=== PATIENT | female | born 1975 ===

== ENCOUNTER → 2020-05-14 12:34 | Outpatient (BNVA) | payer OTHER, MEDICAID, SELFPAY | PROVIDERS: PCP Internal Medicine; Visit Provider Dietitian, Registered | DX: Z76.89 Persons encountering health services in other specified circumstances (principal) ==

== ENCOUNTER → 2020-05-30 14:32 | Outpatient (BNVA) | payer OTHER, MEDICAID, SELFPAY | PROVIDERS: PCP Internal Medicine; Referring Provider Internal Medicine; Visit Provider Dietitian, Registered | DX: Z76.89 Persons encountering health services in other specified circumstances (principal) ==

== ENCOUNTER 2020-06-05 18:13 | Outpatient (REF) | payer OTHER, MEDICAID, SELFPAY | END 2020-06-05 18:14 | disposition home or self-care (01) | LOC: HO.LAB 18:13 | PROVIDERS: Visit Provider Internal Medicine | DX: Z20.828 Contact with and (suspected) exposure to other viral communicable diseases (principal) | CPT/HCPCS: C9803; U0003 ==

== ENCOUNTER → 2020-06-28 12:03 | Outpatient (BNVA) | payer OTHER, MEDICAID, SELFPAY | PROVIDERS: Visit Provider Dietitian, Registered | DX: Z76.89 Persons encountering health services in other specified circumstances (principal) ==

== ENCOUNTER → 2020-08-09 11:55 | Outpatient (BNVA) | payer OTHER, MEDICAID, SELFPAY | PROVIDERS: Visit Provider Dietitian, Registered ==

== ENCOUNTER 2020-08-29 23:54 | Emergency (ER) | payer OTHER, MEDICAID, SELFPAY ==
[2020-08-30 00:04] VITALS: BP 144/73; PULSE 67; RESP 16; TEMP 36.9; O2SAT 99; BMI 16.7
[2020-08-30 03:34] VITALS: BP 122/87; PULSE 75; RESP 15; O2SAT 98
--- NOTE | 2020-08-30 03:45 | ED.ABDPAIN ---
HPI - Abdominal Pain General Chief Complaint: Abdominal Pain Stated Complaint: left sided pain/abd pain Time Seen by Provider: 08/30/20 01:19 Source: patient Mode of arrival: ambulatory History of Present Illness HPI narrative: This is a 45-year-old female who presents with pelvic/left lower quadrant pain, crampy in nature that has been ongoing for over 1 week and has not been associated with any urinary pain/burning/frequency, fevers, chills, nausea, vomiting, decreased p.o. intake. She does have a positive surgical history for and tubal ligation. She states that she typically has a bowel movement twice a day, however notes that today she has had multiple episodes of soft, formed, brown stool. She also endorses that the pelvic portion of her pain was worked up by her administrative assistant office manager with out acute findings on pelvic exam and testing that was done subsequent to that. Her primary care provider empirically start her on levofloxacin and Flagyl, but she states she has not started taking that because she did not understand why it had been prescribed. Related Data Home Medications Medication Instructions Recorded Confirmed multivitamin 1 tab PO DAILY 07/02/20 07/02/20 Allergies Allergy/AdvReac Type Severity Reaction Status Date / Time apple Allergy Unknown Itching Verified 08/09/20 12:00 mouth and ears house dust mite Allergy Unknown Itching Verified 08/09/20 12:00 peach Allergy Unknown itching Verified 08/09/20 12:00 mouth and ears pepper (genus Capsicum) Allergy Unknown itching Verified 08/09/20 12:00 mouth and ears strawberry Allergy Unknown itching Verified 08/09/20 12:00 mouth and ears tomato Allergy Unknown itching Verified 08/09/20 12:00 mouth and ears avocado AdvReac Unknown gagging, Verified 08/09/20 12:00 her voice changes Review of Systems Review of Systems Pertinent positives and negatives as stated in HPI 10 point review of systems is otherwise negative. Physical Exam Vital Signs: Vital Signs: Last Vital Signs Temp 97.4 F 08/30/20 04:00 Pulse 80 08/30/20 04:00 Resp 15 08/30/20 04:00 BP 117/72 08/30/20 04:00 Pulse Ox 99 08/30/20 04:00 Body Mass Index 16.7 VITAL SIGNS: Reviewed. GENERAL: Well developed, under nourished, in no acute distress. HEAD: Normocephalic/atraumatic, EYES: PERRLA, EOMI EARS: Ext canals without abnormality, TMs non-bulging and non-erythematous NOSE: Nares patent bilateral OROPHARYNX: no oral lesions noted, posterior pharynx clear, moist mucosa NECK: Supple, no adenopathy LUNGS: Normal breath sounds. No adventitious sounds or accessory muscle use. SpO2<99> CARDIOVASCULAR: Regular rate and rhythm without noted murmurs, no JVD or lower extremity edema. ABDOMEN: Soft, minimal tenderness noted in mid abdomen/left lower quadrant without rebound, non-distended with bowel sounds. SKIN: Inspection of the skin reveals no rashes NEUROLOGIC: Alert and oriented x 4. Strength and sensation to light touch were grossly intact x 4. Course Course Course Narrative: This is a 45-year-old female with history and clinical presentation suggestive of IBS, less likely diverticulitis, ovarian torsion, ectopic and low clinical suspicion for appendicitis or renal colic. On review of all of the valerie investigations there is no evidence any acute findings. These results were discussed with patient at bedside she was reassured that further outpatient follow-up is the best recommendation at this time. She was discharged in stable condition. MDM - Abdominal Pain Lab Data Result diagrams: 08/30/20 03:44 08/30/20 03:44 Labs: Lab Results 08/30/20 08/30/20 08/30/20 Range/Units 03:44 03:44 03:44 WBC 8.7 (4.8-10.8) X10*3/uL RBC 5.05 (4.20-5.50) X10*6/uL Hgb 13.3 (12.0-16.0) g/dl Hct 41.0 (37-47) % MCV 81.2 (80-98) fL MCH 26.3 L (27.0-33.0) pg MCHC 32.4 (31.0-35.0) g/dl RDW 12.1 (11.0-16.0) % Plt Count 289 (160-400) X10*3/uL MPV 9.9 (9.4-12.3) fL Immature Gran % (Auto) 0.2 (0.0-0.4) % Neut % (Auto) 68.6 (45-73) % Lymph % (Auto) 24.9 (20-40) % [place] % (Auto) 5.7 (2-11) % Eos % (Auto) 0.3 (0-4) % Baso % (Auto) 0.3 (0-2) % Lymph # (Auto) 2.2 (1.2-4.9) X10*3/uL [place] # (Auto) 0.5 (0.1-1.2) X10*3/uL Eos # (Auto) 0.0 (0.0-0.4) X10*3/uL Baso # (Auto) 0.0 (0.0-0.2) X10*3/uL Abs Immat Gran (auto) 0.02 (0.00-0.03) X10*3/uL Absolute Neuts (auto) 6.0 (2.0-8.3) X10*3/uL Absolute Nucleated RBC 0.000 (0.0-0.012) X10*3/uL Nucleated RBC % (auto) 0.0 (0.0-0.2) /100WBC Sodium 139 (135-145) mmol/L Potassium 3.5 (3.3-5.1) mmol/L Chloride 107 (96-108) mmol/L Carbon Dioxide 25 (22-29) mmol/L Anion Gap 11 L (12-20) BUN 10 (9-16) mg/dL Creatinine 0.70 (0.5-1.4) mg/dL Estim Creat Clear Calc 69.9 Estimated GFR > 60 Random Glucose 107 (60-115) mg/dL Calcium 9.0 (8.4-10.2) mg/dL Total Bilirubin 0.5 (0.0-1.0) mg/dL AST 14 (5-31) U/L ALT 8 (0-31) U/L Alkaline Phosphatase 59 (39-117) U/L Total Protein 7.0 (6.5-8.0) g/dL Albumin 4.5 (3.5-5.0) g/dL Lipase 29 (8-78) U/L Urine Color YELLOW Urine Appearance CLEAR Urine pH 7.0 (5.0-8.0) Ur Specific [place] 1.025 (1.005-1.025) Urine Protein NEG (NEG-TRACE) MG/DL Urine Glucose (UA) NEG (NEG) MG/DL Urine Ketones 15 (NEG) MG/DL Urine Blood TRACE (NEG) Urine Nitrite NEG (NEG) Ur Leukocyte Esterase NEG (NEG) Urine RBC 1-4 (0) /HPF Urine WBC 1-4 (0-4) /HPF Ur Squamous Epith Cells 1+ /LPF Amorphous Sediment 2+ /LPF Urine Bacteria 1+ /LPF Urine Test (NEGATIVE) 08/30/20 Range/Units 03:44 WBC (4.8-10.8) X10*3/uL RBC (4.20-5.50) X10*6/uL Hgb (12.0-16.0) g/dl Hct (37-47) % MCV (80-98) fL MCH (27.0-33.0) pg MCHC (31.0-35.0) g/dl RDW (11.0-16.0) % Plt Count (160-400) X10*3/uL MPV (9.4-12.3) fL Immature Gran % (Auto) (0.0-0.4) % Neut % (Auto) (45-73) % Lymph % (Auto) (20-40) % [place] % (Auto) (2-11) % Eos % (Auto) (0-4) % Baso % (Auto) (0-2) % Lymph # (Auto) (1.2-4.9) X10*3/uL [place] # (Auto) (0.1-1.2) X10*3/uL Eos # (Auto) (0.0-0.4) X10*3/uL Baso # (Auto) (0.0-0.2) X10*3/uL Abs Immat Gran (auto) (0.00-0.03) X10*3/uL Absolute Neuts (auto) (2.0-8.3) X10*3/uL Absolute Nucleated RBC (0.0-0.012) X10*3/uL Nucleated RBC % (auto) (0.0-0.2) /100WBC Sodium (135-145) mmol/L Potassium (3.3-5.1) mmol/L Chloride (96-108) mmol/L Carbon Dioxide (22-29) mmol/L Anion Gap (12-20) BUN (9-16) mg/dL Creatinine (0.5-1.4) mg/dL Estim Creat Clear Calc Estimated GFR Random Glucose (60-115) mg/dL Calcium (8.4-10.2) mg/dL Total Bilirubin (0.0-1.0) mg/dL AST (5-31) U/L ALT (0-31) U/L Alkaline Phosphatase (39-117) U/L Total Protein (6.5-8.0) g/dL Albumin (3.5-5.0) g/dL Lipase (8-78) U/L Urine Color Urine Appearance Urine pH (5.0-8.0) Ur Specific [place] (1.005-1.025) Urine Protein (NEG-TRACE) MG/DL Urine Glucose (UA) (NEG) MG/DL Urine Ketones (NEG) MG/DL Urine Blood (NEG) Urine Nitrite (NEG) Ur Leukocyte Esterase (NEG) Urine RBC (0) /HPF Urine WBC (0-4) /HPF Ur Squamous Epith Cells /LPF Amorphous Sediment /LPF Urine Bacteria /LPF Urine Test NEGATIVE (NEGATIVE) Discharge Plan Discharge Clinical Impression: Abdominal discomfort Patient Disposition: Home, Self-Care Instructions: Abdominal Pain (ED), Gas and Bloating (ED) Additional Instructions: Please follow-up with your primary care provider in the next 2-3 days for further outpatient re-evaluation and management. Do not hesitate to return to this emergency department should you experience any acute worsening of your symptoms. Prescriptions: No Action multivitamin Tablet 1 tab PO DAILY RF: 0 Referrals: Laurence Olmedo MD [Primary Care Provider] - 2 days (Re-evaluation and outpatient management after seen in the emergency department for abdominal discomfort with normal labs. No CT scan was ordered based on normal lab work/urinalysis.) [facility] Past Medical History Source: nursing notes reviewed Medical History Anxiety Social History Social History Smoking Status: Never smoker Use of substances other than those prescribed or required for medical reasons: No Advance Directives: No Advance Directives Information Provided: No
[2020-08-30 03:52] LABS: MANUAL DIFF FLAG NO
[2020-08-30 03:55] LABS: Basophils Percent Auto 0.3 % (0-2); Eosinophils Percent Auto 0.3 % (0-4); Hemoglobin 13.3 g/dl (12.0-16.0); Imm Gran Abs Auto 0.02 X10*3/uL (0.00-0.03); Imm Gran Pct Auto 0.2 % (0.0-0.4); Lymphocytes Absolute Auto 2.2 X10*3/uL (1.2-4.9); Lymphocytes Percent Auto 24.9 % (20-40); Mean Corpuscular HGB Conc 32.4 g/dl (31.0-35.0); Mean Corpuscular Hemoglobin 26.3 pg (27.0-33.0); Mean Corpuscular Volume 81.2 fL (80-98); Mean Platelet Volume 9.9 fL (9.4-12.3); Monocytes Absolute Auto 0.5 X10*3/uL (0.1-1.2); Monocytes Percent Auto 5.7 % (2-11); Neutrophils Percent Auto 68.6 % (45-73); Platelet Count 289 X10*3/uL (160-400); Red Blood Count 5.05 X10*6/uL (4.20-5.50); Red Cell Distribution Width 12.1 % (11.0-16.0); White Blood Count 8.7 X10*3/uL (4.8-10.8)
[2020-08-30 03:57] LABS: Glucose Urine UA NEG (NEG); Leukocyte Esterase Urine NEG (NEG); Nitrite Urine NEG (NEG); Specific Gravity - Urine 1.025 (1.005-1.025); Urine Blood TRACE (NEG); Urine Ketones 15 MG/DL (NEG); Urine Protein NEG (NEG-TRACE)
[2020-08-30 04:00] VITALS: BP 117/72; PULSE 80; RESP 15; TEMP 36.3; O2SAT 99
[2020-08-30 04:00] LABS: UPreg QC Valid YES; Urine Pregnancy NEGATIVE (NEGATIVE)
[2020-08-30 04:01] LABS: Appearance Urine CLEAR; Color Urine YELLOW
[2020-08-30 04:08] LABS: Bacteria Urine 1+ /LPF; Squamous Epithelial Cell Urine 1+ /LPF
[2020-08-30 04:09] LABS: Amorphous Sediment Urine 2+ /LPF
[2020-08-30 04:15] LABS: Alanine Aminotransferase 8 U/L (0-31); Albumin Level 4.5 g/dL (3.5-5.0); Alkaline Phosphatase 59 U/L (39-117); Anion Gap 11 (12-20); Aspartate Amino Transferase 14 U/L (5-31); Bilirubin Total 0.5 mg/dL (0.0-1.0); Blood Urea Nitrogen 10 mg/dL (9-16); Carbon Dioxide 25 mmol/L (22-29); Chloride 107 mmol/L (96-108); Creatinine Clr Calc Pharmacy 69.9; Estimated Glomerular Filt Rate > 60; Glucose Random 107 mg/dL (60-115); Lipase 29 U/L (8-78); Potassium 3.5 mmol/L (3.3-5.1); Sodium 139 mmol/L (135-145)
== END 2020-08-30 05:50 | disposition home or self-care (01) ==
PROVIDERS: Emergency Provider Student in an Organized Health Care Education/Training Program; PCP Internal Medicine
DX: R10.32 Left lower quadrant pain (principal); R14.0 Abdominal distension (gaseous); Z79.899 Other long term (current) drug therapy
CPT/HCPCS: 36415; 80053; 81001; 81003; 81025; 83690; 85025; 99283; 99284

== ENCOUNTER 2020-09-07 21:04 | Emergency (ER) | payer OTHER, MEDICAID, SELFPAY ==
--- NOTE | ~2020-09-07 | CT_ITS ---
EXAMINATION: CT ABDOMEN AND PELVIS WITH CONTRAST CLINICAL INFORMATION: LLQ pain COMPARISON: None TECHNIQUE: Multidetector volumetric images were obtained from the superior aspect of the liver through the pubic symphysis following administration 85 mL of Omnipaque 350 intravenous contrast. Sagittal and coronal reformatted images were obtained on the technologist's workstation. Oral contrast: No This CT examination was performed using dose optimization techniques as appropriate, variously including the following: *Automated exposure control *Adjustment of mA and/or kV according to patient size (this includes techniques or standardized protocols for targeted exams where dose is matched to indication/reason for exam; i.e. extremities or head) *Use of iterative reconstruction technique DLP: 288 mGy-cm FINDINGS: LUNG BASES: The visualized lung bases are unremarkable. LIVER, GALLBLADDER, AND BILIARY TREE: The liver is normal in size, shape, and attenuation. No focal hepatic lesion or biliary ductal dilatation is present. The gallbladder is unremarkable with no evidence of radiopaque gallstones, gallbladder wall thickening, or obvious pericholecystic inflammatory changes. PANCREAS: Unremarkable. SPLEEN: Unremarkable. ADRENAL GLANDS: Unremarkable. KIDNEYS AND URETERS: There is mild right renal ptosis. The kidneys are normal in size, shape, and attenuation. No hydronephrosis, hydroureter, or calculi seen. No perinephric stranding. Contrast material is present within the renal collecting systems proximally. BLADDER: Unremarkable. GASTROINTESTINAL TRACT: Stomach, small bowel, and colon are normal in caliber. No bowel wall thickening or surrounding inflammatory changes. Appendix is normal. No intraperitoneal free fluid or free air. ABDOMINAL WALL: No significant hernia is appreciated. LYMPH NODES: Normal. VASCULAR: Unremarkable. PELVIC VISCERA: The uterus and adnexa are unremarkable. OSSEOUS STRUCTURES: Unremarkable. CT/CT abdomen pelvis w con IMPRESSION: No acute intra-abdominal or intrapelvic abnormalities.
[2020-09-07 23:57] VITALS: BP 131/100; PULSE 87; RESP 20; TEMP 36.6; O2SAT 100; BMI 16.6
--- NOTE | 2020-09-08 00:32 | ED_ITS ---
HPI - Abdominal Pain General Chief Complaint: Abdominal Pain Stated Complaint: Abdominal pain Time Seen by Provider: 09/08/20 00:20 Source: patient Mode of arrival: ambulatory Limitations: no limitations History of Present Illness HPI narrative: Patient comes emergency room complaining of left lower quadrant pain. Patient has been evaluated by her special education associate, patient states she had an ultrasound done on August 24, was told that was unremarkable. Then patient went to see her primary care physician, she was prescribed Flagyl and levofloxacin for possible diverticulitis, patient only took 2 doses, patient states it made the pain worse and therefore stopped taking it. Patient was evaluated on August 30 here as well for the same issue. Patient denies vomiting, no diarrhea, no constipation MD elicited complaint: abdominal pain Related Data Home Medications Medication Instructions Recorded Confirmed multivitamin 1 tab PO DAILY 07/02/20 07/02/20 Allergies Allergy/AdvReac Type Severity Reaction Status Date / Time apple Allergy Unknown Itching Verified 09/07/20 23:57 mouth and ears house dust mite Allergy Unknown Itching Verified 09/07/20 23:57 peach Allergy Unknown itching Verified 09/07/20 23:57 mouth and ears pepper (genus Capsicum) Allergy Unknown itching Verified 09/07/20 23:57 mouth and ears strawberry Allergy Unknown itching Verified 09/07/20 23:57 mouth and ears tomato Allergy Unknown itching Verified 09/07/20 23:57 mouth and ears avocado AdvReac Unknown gagging, Verified 09/07/20 23:57 her voice changes Review of Systems Review of Systems Constitutional : No Weight loss, No Fever, No Chills, No Night Sweats, No Fatigue, No Malaise ENT/Mouth : No Hearing loss, No Ear Pain, No Nasal Congestion, No Sinus Pain, No Hoarseness, No sore throat, No Rhinorrhea, No Swallowing Difficulty Eyes: No Eye Pain, No Swelling, No Redness, No Foreign Body, No Discharge, No Vision Changes Cardiovascular : No Chest Pain, No SOB, No Dyspnea on Exertion, No Orthopnea, No Edema, No Palpitations Respiratory : No Cough, No Sputum, No Wheezing, No Smoke Exposure, No Dyspnea Gastrointestinal : No Nausea, No Vomiting, No Diarrhea, No Constipation, complaining of left lower quadrant pain, No Hematochezia, No Melena Genitourinary : no irregular bleeding, No Dysuria, No Urinary Frequency, No Hematuria, No Urinary Incontinence, No Urgency, No Flank Pain, No Urinary Flow Changes, No Hesitancy Musculoskeletal : No joint pain, No Myalgias, No Joint Swelling Skin : No Skin Lesions, No rash Neuro : No Weakness, No Numbness, No Paresthesias, No Loss of Consciousness, No Dizziness, No Headache Psych : No Anxiety/Panic, No Depression, No SI/HI/AH/VH, No Social Issues, Heme/Lymph: No Bruising, No Bleeding,No Lymphadenopathy Endocrine : No Polyuria, No Polydipsia, No Temperature Intolerance Physical Exam Vital Signs: Vital Signs: Last Vital Signs Temp 97.9 F 09/07/20 23:57 Pulse 79 09/08/20 02:25 Resp 16 09/08/20 02:25 BP 131/100 H 09/08/20 02:25 Pulse Ox 99 09/08/20 02:25 Body Mass Index 16.6 Appearance: Alert. Oriented X3. No acute distress. Eyes: Pupils equal, round and reactive to light. ENT: Pharynx normal. Neck: Normal inspection. Neck supple. No lymph nodes noted. No crepitus CVS: Normal heart rate and rhythm. Pulses normal. Normal S1 and S2 Respiratory: No respiratory distress. Breath sounds normal. No Wheezing. No rales Abdomen: Soft , mild discomfort to palpation over the right lower quadrant and suprapubic area, No rigidity. No distention. good BS x4 Skin: Skin warm and dry. Normal skin color. Normal skin turgor. Extremities: No lower extremity edema. No lower extremity edema. No Lacerations. No Rash Neuro: Oriented X 3. No motor deficit. No sensory deficit. Moving all extermities. No slurred speech. Course Course Course Narrative: I discussed labs and imaging with the patient, no acute findings. Patient instructed to follow-up with her primary care physician. Patient has no vomiting diarrhea, abdomen soft MDM - Abdominal Pain Lab Data Result diagrams: 09/08/20 01:10 09/08/20 01:10 Labs: Lab Results 09/08/20 09/08/20 09/08/20 Range/Units 01:10 01:10 01:10 WBC 6.8 (4.8-10.8) X10*3/uL RBC 4.90 (4.20-5.50) X10*6/uL Hgb 13.1 (12.0-16.0) g/dl Hct 40.8 (37-47) % MCV 83.3 (80-98) fL MCH 26.7 L (27.0-33.0) pg MCHC 32.1 (31.0-35.0) g/dl RDW 12.3 (11.0-16.0) % Plt Count 274 (160-400) X10*3/uL MPV 9.5 (9.4-12.3) fL Immature Gran % (Auto) 0.3 (0.0-0.4) % Neut % (Auto) 55.6 (45-73) % Lymph % (Auto) 34.9 (20-40) % [place] % (Auto) 7.7 (2-11) % Eos % (Auto) 1.2 (0-4) % Baso % (Auto) 0.3 (0-2) % Lymph # (Auto) 2.4 (1.2-4.9) X10*3/uL [place] # (Auto) 0.5 (0.1-1.2) X10*3/uL Eos # (Auto) 0.1 (0.0-0.4) X10*3/uL Baso # (Auto) 0.0 (0.0-0.2) X10*3/uL Abs Immat Gran (auto) 0.02 (0.00-0.03) X10*3/uL Absolute Neuts (auto) 3.8 (2.0-8.3) X10*3/uL Absolute Nucleated RBC 0.000 (0.0-0.012) X10*3/uL Nucleated RBC % (auto) 0.0 (0.0-0.2) /100WBC Sodium 141 (135-145) mmol/L Potassium 3.7 (3.3-5.1) mmol/L Chloride 106 (96-108) mmol/L Carbon Dioxide 27 (22-29) mmol/L Anion Gap 12 (12-20) BUN 16 D (9-16) mg/dL Creatinine 0.69 (0.5-1.4) mg/dL Estim Creat Clear Calc 70.7 Estimated GFR > 60 Random Glucose 95 (60-115) mg/dL Calcium 9.2 (8.4-10.2) mg/dL Total Bilirubin 0.9 (0.0-1.0) mg/dL Direct Bilirubin 0.3 (0.0-0.5) mg/dL AST 17 (5-31) U/L ALT 8 (0-31) U/L Alkaline Phosphatase 64 (39-117) U/L Total Protein 7.1 (6.5-8.0) g/dL Albumin 4.5 (3.5-5.0) g/dL Lipase 25 (8-78) U/L Urine Color YELLOW Urine Appearance CLEAR Urine pH 6.0 (5.0-8.0) Ur Specific [place] >= 1.030 H (1.005-1.025) Urine Protein NEG (NEG-TRACE) MG/DL Urine Glucose (UA) NEG (NEG) MG/DL Urine Ketones 5 (NEG) MG/DL Urine Blood 1+ H (NEG) Urine Nitrite NEG (NEG) Ur Leukocyte Esterase NEG (NEG) Urine RBC 0-2 (0) /HPF Urine WBC 0 (0-4) /HPF Ur Squamous Epith Cells 1+ /LPF Calcium Oxalate Crystal TRACE /LPF Urine Bacteria NONE /LPF Urine Mucus 3+ /LPF Urine Test (NEGATIVE) 09/08/20 Range/Units 01:10 WBC (4.8-10.8) X10*3/uL RBC (4.20-5.50) X10*6/uL Hgb (12.0-16.0) g/dl Hct (37-47) % MCV (80-98) fL MCH (27.0-33.0) pg MCHC (31.0-35.0) g/dl RDW (11.0-16.0) % Plt Count (160-400) X10*3/uL MPV (9.4-12.3) fL Immature Gran % (Auto) (0.0-0.4) % Neut % (Auto) (45-73) % Lymph % (Auto) (20-40) % [place] % (Auto) (2-11) % Eos % (Auto) (0-4) % Baso % (Auto) (0-2) % Lymph # (Auto) (1.2-4.9) X10*3/uL [place] # (Auto) (0.1-1.2) X10*3/uL Eos # (Auto) (0.0-0.4) X10*3/uL Baso # (Auto) (0.0-0.2) X10*3/uL Abs Immat Gran (auto) (0.00-0.03) X10*3/uL Absolute Neuts (auto) (2.0-8.3) X10*3/uL Absolute Nucleated RBC (0.0-0.012) X10*3/uL Nucleated RBC % (auto) (0.0-0.2) /100WBC Sodium (135-145) mmol/L Potassium (3.3-5.1) mmol/L Chloride (96-108) mmol/L Carbon Dioxide (22-29) mmol/L Anion Gap (12-20) BUN (9-16) mg/dL Creatinine (0.5-1.4) mg/dL Estim Creat Clear Calc Estimated GFR Random Glucose (60-115) mg/dL Calcium (8.4-10.2) mg/dL Total Bilirubin (0.0-1.0) mg/dL Direct Bilirubin (0.0-0.5) mg/dL AST (5-31) U/L ALT (0-31) U/L Alkaline Phosphatase (39-117) U/L Total Protein (6.5-8.0) g/dL Albumin (3.5-5.0) g/dL Lipase (8-78) U/L Urine Color Urine Appearance Urine pH (5.0-8.0) Ur Specific [place] (1.005-1.025) Urine Protein (NEG-TRACE) MG/DL Urine Glucose (UA) (NEG) MG/DL Urine Ketones (NEG) MG/DL Urine Blood (NEG) Urine Nitrite (NEG) Ur Leukocyte Esterase (NEG) Urine RBC (0) /HPF Urine WBC (0-4) /HPF Ur Squamous Epith Cells /LPF Calcium Oxalate Crystal /LPF Urine Bacteria /LPF Urine Mucus /LPF Urine Test NEGATIVE (NEGATIVE) Imaging Data CT scan - abdomen: Radiologist's impression: FINDINGS: LUNG BASES: The visualized lung bases are unremarkable. LIVER, GALLBLADDER, AND BILIARY TREE: The liver is normal in size, shape, and attenuation. No focal hepatic lesion or biliary ductal dilatation is present. The gallbladder is unremarkable with no evidence of radiopaque gallstones, gallbladder wall thickening, or obvious pericholecystic inflammatory changes. PANCREAS: Unremarkable. SPLEEN: Unremarkable. ADRENAL GLANDS: Unremarkable. KIDNEYS AND URETERS: There is mild right renal ptosis. The kidneys are normal in size, shape, and attenuation. No hydronephrosis, hydroureter, or calculi seen. No perinephric stranding. Contrast material is present within the renal collecting systems proximally. BLADDER: Unremarkable. GASTROINTESTINAL TRACT: Stomach, small bowel, and colon are normal in caliber. No bowel wall thickening or surrounding inflammatory changes. Appendix is normal. No intraperitoneal free fluid or free air. ABDOMINAL WALL: No significant hernia is appreciated. LYMPH NODES: Normal. VASCULAR: Unremarkable. PELVIC VISCERA: The uterus and adnexa are unremarkable. OSSEOUS STRUCTURES: Unremarkable. CT/CT abdomen pelvis w con IMPRESSION: No acute intra-abdominal or intrapelvic abnormalities. Discharge Plan Discharge Clinical Impression: Abdominal pain Qualifiers: Abdominal location: left lower quadrant Qualified Code(s): R10.32 - Left lower quadrant pain Patient Disposition: Home, Self-Care Instructions: Abdominal Pain (ED) Additional Instructions: Please follow-up with your primary care physician tomorrow. If you have any worsening or new symptoms, please return to the emergency room or call 911 Prescriptions: No Action multivitamin Tablet 1 tab PO DAILY RF: 0 Referrals: Everton Brasher [Physician] - 2 days [facility] Past Medical History Medical History Anxiety Social History Social History Smoking Status: Never smoker Advance Directives: No Advance Directives Information Provided: No
[2020-09-08 01:16] LABS: Basophils Percent Auto 0.3 % (0-2); Eosinophils Absolute Auto 0.1 X10*3/uL (0.0-0.4); Eosinophils Percent Auto 1.2 % (0-4); Hematocrit 40.8 % (37-47); Hemoglobin 13.1 g/dl (12.0-16.0); Imm Gran Abs Auto 0.02 X10*3/uL (0.00-0.03); Imm Gran Pct Auto 0.3 % (0.0-0.4); Lymphocytes Absolute Auto 2.4 X10*3/uL (1.2-4.9); Lymphocytes Percent Auto 34.9 % (20-40); MANUAL DIFF FLAG NO; Mean Corpuscular HGB Conc 32.1 g/dl (31.0-35.0); Mean Corpuscular Hemoglobin 26.7 pg (27.0-33.0); Mean Corpuscular Volume 83.3 fL (80-98); Mean Platelet Volume 9.5 fL (9.4-12.3); Monocytes Absolute Auto 0.5 X10*3/uL (0.1-1.2); Monocytes Percent Auto 7.7 % (2-11); Neutrophils Absolute Auto 3.8 X10*3/uL (2.0-8.3); Neutrophils Percent Auto 55.6 % (45-73); Platelet Count 274 X10*3/uL (160-400); Red Cell Distribution Width 12.3 % (11.0-16.0); White Blood Count 6.8 X10*3/uL (4.8-10.8)
[2020-09-08 01:18] LABS: Appearance Urine CLEAR; Color Urine YELLOW; Glucose Urine UA NEG (NEG); Leukocyte Esterase Urine NEG (NEG); Nitrite Urine NEG (NEG); Specific Gravity - Urine >= 1.030 (1.005-1.025); Urine Blood 1+ (NEG); Urine Ketones 5 MG/DL (NEG); Urine Protein NEG (NEG-TRACE)
[2020-09-08 01:19] LABS: UPreg QC Valid YES; Urine Pregnancy NEGATIVE (NEGATIVE)
[2020-09-08 01:23] LABS: Calcium Oxalate Crystals Urine TRACE /LPF; Mucus Urine 3+ /LPF; RBC Urine 0-2 /HPF (0); Squamous Epithelial Cell Urine 1+ /LPF; WBC Urine 0 /HPF (0-4)
[2020-09-08 01:36] LABS: Alanine Aminotransferase 8 U/L (0-31); Albumin Level 4.5 g/dL (3.5-5.0); Alkaline Phosphatase 64 U/L (39-117); Anion Gap 12 (12-20); Aspartate Amino Transferase 17 U/L (5-31); Bilirubin Direct 0.3 mg/dL (0.0-0.5); Bilirubin Total 0.9 mg/dL (0.0-1.0); Blood Urea Nitrogen 16 mg/dL (9-16); Calcium 9.2 mg/dL (8.4-10.2); Carbon Dioxide 27 mmol/L (22-29); Chloride 106 mmol/L (96-108); Creatinine Clr Calc Pharmacy 70.7; Estimated Glomerular Filt Rate > 60; Glucose Random 95 mg/dL (60-115); Lipase 25 U/L (8-78); Potassium 3.7 mmol/L (3.3-5.1); Sodium 141 mmol/L (135-145); Total Protein 7.1 g/dL (6.5-8.0)
[2020-09-08 02:25] VITALS: BP 131/100; PULSE 79; RESP 16; O2SAT 99
[2020-09-08 04:20] VITALS: BP 128/73; PULSE 80; RESP 18; O2SAT 98
== END 2020-09-08 04:22 | disposition home or self-care (01) ==
PROVIDERS: Emergency Provider Emergency Medicine; PCP Internal Medicine
DX: R10.32 Left lower quadrant pain (principal)
CPT/HCPCS: 36415; 74177; 80048; 80076; 81001; 81025; 83690; 85025; 99284; Q9967

== ENCOUNTER → 2020-10-10 12:56 | Outpatient (BNVA) | payer OTHER, MEDICAID, SELFPAY | PROVIDERS: PCP Internal Medicine; Visit Provider Internal Medicine Gastroenterology ==

== ENCOUNTER → 2020-10-15 13:08 | Outpatient (BNVA) | payer OTHER, MEDICAID, SELFPAY | PROVIDERS: PCP Internal Medicine; Visit Provider Dietitian, Registered | DX: R63.6 Underweight (principal) | CPT/HCPCS: 97803 ==

== ENCOUNTER → 2020-11-21 12:50 | Outpatient (BNVA) | payer OTHER, MEDICAID, SELFPAY | PROVIDERS: PCP Internal Medicine; Visit Provider Dietitian, Registered | DX: R63.6 Underweight (principal) | CPT/HCPCS: 97803 ==

== ENCOUNTER → 2021-02-06 12:40 | Outpatient (BNVA) | payer OTHER, MEDICAID, SELFPAY | PROVIDERS: PCP Internal Medicine; Visit Provider Dietitian, Registered | DX: R63.6 Underweight (principal) | CPT/HCPCS: 97803 ==

== ENCOUNTER 2021-03-02 10:20 | Outpatient (REF) | payer OTHER, MEDICAID, SELFPAY ==
--- NOTE | ~2021-03-02 | MM_ITS ---
EXAMINATION: MM SCREENING DIGITAL BREAST TOMOSYNTHESIS, BILATERAL CLINICAL INFORMATION: Screening. Asymptomatic. The lifetime risk of breast cancer based on the Tyrer-Cuzick Model is 7%. COMPARISON: Mammography: 02/14/2020, 02/08/2019 TECHNIQUE: Digital breast tomosynthesis is performed in both the craniocaudal and mediolateral oblique views along with computer-aided detection (CAD). Synthesized 2D images are generated from the tomosynthesis. FINDINGS: The breasts are heterogeneously dense, which may obscure small masses (ACR BI-RADS breast composition Category c). There are no significant masses, abnormal calcifications, or other abnormalities. Parenchymal pattern borders on extremely dense. The axilla and skin contours are unremarkable. No significant changes. MM/MM tomosynthesis screening BI IMPRESSION: No mammographic evidence of malignancy. ASSESSMENT: BI-RADS 1: Negative RECOMMENDATION: Routine annual mammography screening. This patient's information was entered into a reminder system with a target due date for their next mammogram.
== END 2021-03-02 10:21 | disposition home or self-care (01) ==
LOC: HO.MAMMO 10:20
PROVIDERS: Visit Provider Internal Medicine
DX: Z12.31 Encounter for screening mammogram for malignant neoplasm of breast (principal)
CPT/HCPCS: 77063; 77067

== ENCOUNTER → 2021-03-14 13:08 | Outpatient (BNVA) | payer OTHER, MEDICAID, SELFPAY | PROVIDERS: PCP Internal Medicine; Visit Provider Dietitian, Registered | DX: R63.6 Underweight (principal); Z68.1 Body mass index [BMI] 19.9 or less, adult | CPT/HCPCS: 97803 ==

== ENCOUNTER 2021-04-29 16:03 | Emergency (ER) | payer OTHER, MEDICAID, SELFPAY ==
--- NOTE | 2021-04-29 | ECG_ITS ---
Test Reason : chest pain Blood Pressure : / mmHG Vent. Rate : 083 BPM Atrial Rate : 083 BPM P-R Int : 134 ms QRS Dur : 074 ms QT Int : 354 ms P-R-T Axes : 045 096 -44 degrees QTc Int : 415 ms Normal sinus rhythm Rightward axis T wave abnormality, consider inferior ischemia Abnormal ECG When compared with ECG of 29-JUL-2019 22:41, T wave inversion more evident in Inferior leads Referred By: Generic ED Physician Electronically Signed By:CAITLIN GARZA MD
[2021-04-29 16:11] VITALS: BP 121/94; PULSE 90; RESP 18; TEMP 36.7; O2SAT 100; BMI 15.9
--- NOTE | 2021-04-29 16:52 | ED_ITS ---
HPI - Chest Pain General Chief Complaint: Chest Pain Stated Complaint: chest pain Time Seen by Provider: 04/29/21 16:47 Source: patient Mode of arrival: ambulatory Limitations: no limitations History of Present Illness HPI narrative: 45 years old with history of anxiety panic attack no known coronary artery disease no history of diabetes or hypertension noticed abnormal feeling the mid chest around 08:00 in the morning lasted for few hours again prior to arrival she had a similar feeling no diaphoresis no nausea no vomiting no shortness of breath patient has similar episode last year with workup negative never had a stress test. Two weeks ago patient saw the primary care doctor plan to see a dimmer board operator next week Related Data Home Medications Medication Instructions Recorded Confirmed multivitamin 1 tab PO DAILY 07/02/20 10/12/20 Allergies Allergy/AdvReac Type Severity Reaction Status Date / Time apple Allergy Unknown Itching Verified 04/29/21 16:18 mouth and ears house dust mite Allergy Unknown Itching Verified 04/29/21 16:18 peach Allergy Unknown itching Verified 04/29/21 16:18 mouth and ears pepper (genus Capsicum) Allergy Unknown itching Verified 04/29/21 16:18 mouth and ears strawberry Allergy Unknown itching Verified 04/29/21 16:18 mouth and ears tomato Allergy Unknown itching Verified 04/29/21 16:18 mouth and ears avocado AdvReac Unknown gagging, Verified 04/29/21 16:18 her voice changes Review of Systems Review of Systems: Yes all other systems are reviewed and are negative PMFSH Past Medical History Medical History Abdominal pain Anxiety Surgical History Hx of section Hx of tonsillectomy Hx of tubal ligation Family History Family History Father Hx of prostatic malignancy Hx of diabetes mellitus Family hx of hypertension Mother No problems noted. Sister No problems noted. Brother No problems noted. 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 Oriented X3. No acute distress. ENT: Pharynx normal. Oral Mucosa moist Neck: Normal inspection. Neck supple. CVS: Normal heart rate and rhythm. Pulses normal. Respiratory: No respiratory distress. Equal air entry bilateral, no wheezing/rales/rhonchi Abdomen: Soft and nontender. Bowel sounds are present, no mass palpable, no CVA tenderness Skin: Skin warm and dry. Normal skin color. Normal skin turgor. Extremities: No lower extremity edema. No calf tenderness Neuro: Oriented X 3. MDM - Chest Pain MDM Narrative Medical decision making narrative: Patient has atypical chest pain for more than 6 hour normal troponin EKG without any acute ischemic changes plan to see dimmer board operator outpatient discharge patient Lab Data Attestation: I reviewed the patient's lab results. Result diagrams: 04/29/21 18:04 04/29/21 18:04 Labs: Lab Results 04/29/21 04/29/21 04/29/21 Range/Units 18:04 18:04 18:04 WBC 8.6 (4.8-10.8) X10*3/uL RBC 5.13 (4.20-5.50) X10*6/uL Hgb 13.7 (12.0-16.0) g/dl Hct 42.3 (37.0-47.0) % MCV 82.5 (80.0-98.0) fL MCH 26.7 L (27.0-33.0) pg MCHC 32.4 (31.0-35.0) g/dl RDW 12.4 (11.0-16.0) % Plt Count 288 (160-400) X10*3/uL MPV 9.6 (9.4-12.3) fL Immature Gran % (Auto) 0.3 (0.0-0.4) % Neut % (Auto) 70.5 (45-73) % Lymph % (Auto) 22.7 (20-40) % [place] % (Auto) 6.1 (2-11) % Eos % (Auto) 0.2 (0-4) % Baso % (Auto) 0.2 (0-2) % Lymph # (Auto) 2.0 (1.2-4.9) X10*3/uL [place] # (Auto) 0.5 (0.1-1.2) X10*3/uL Eos # (Auto) 0.0 (0.0-0.4) X10*3/uL Baso # (Auto) 0.0 (0.0-0.2) X10*3/uL Abs Immat Gran (auto) 0.03 (0.00-0.03) X10*3/uL Absolute Neuts (auto) 6.0 (2.0-8.3) x10*3/uL Absolute Nucleated RBC 0.000 (0.0-0.012) X10*3/uL Nucleated RBC % (auto) 0.0 (0.0-0.2) /100WBC Sodium 139 (135-145) mmol/L Potassium 3.9 (3.3-5.1) mmol/L Chloride 108 (96-108) mmol/L Carbon Dioxide 23 (22-29) mmol/L Anion Gap 12 (12-20) BUN 9 (9-16) mg/dL Creatinine 0.66 (0.5-1.4) mg/dL Estim Creat Clear Calc 70.8 Estimated GFR > 60 Random Glucose 88 (60-115) mg/dL Calcium 9.1 (8.4-10.2) mg/dL Troponin I High Sens < 3.5 (<3.5-17.0) ng/L ECG Data ECG #1: Attestation: I personally reviewed and interpreted this ECG as follows: Interpretation: Normal sinus rhythm right axis deviation nonspecific T inversion in 2, [address] elevation no acute skin Scores Heart Score History: -0- slightly suspicious ECG: -0- normal Age: -0- < or = 45 Risk factory: -0- no risk factors known Troponin: -0- < or = normal limit Score: 0 Risk: 1.7% Discharge Plan Discharge Clinical Impression: Chest pain Qualifiers: Chest pain type: precordial pain Qualified Code(s): R07.2 - Precordial pain Patient Disposition: Home, Self-Care Instructions: Chest Pain (ED) Additional Instructions: Take baby aspirin daily Follow-up with your PCP and dimmer board operator as scheduled Prescriptions: No Action multivitamin Tablet 1 tab PO DAILY RF: 0
[2021-04-29 18:09] VITALS: PULSE 80
[2021-04-29 18:09] LABS: MANUAL DIFF FLAG NO
[2021-04-29 18:11] LABS: Basophils Percent Auto 0.2 % (0-2); Eosinophils Percent Auto 0.2 % (0-4); Hematocrit 42.3 % (37.0-47.0); Hemoglobin 13.7 g/dl (12.0-16.0); Imm Gran Abs Auto 0.03 X10*3/uL (0.00-0.03); Imm Gran Pct Auto 0.3 % (0.0-0.4); Lymphocytes Percent Auto 22.7 % (20-40); Mean Corpuscular HGB Conc 32.4 g/dl (31.0-35.0); Mean Corpuscular Hemoglobin 26.7 pg (27.0-33.0); Mean Corpuscular Volume 82.5 fL (80.0-98.0); Mean Platelet Volume 9.6 fL (9.4-12.3); Monocytes Absolute Auto 0.5 X10*3/uL (0.1-1.2); Monocytes Percent Auto 6.1 % (2-11); Neutrophils Percent Auto 70.5 % (45-73); Platelet Count 288 X10*3/uL (160-400); Red Blood Count 5.13 X10*6/uL (4.20-5.50); Red Cell Distribution Width 12.4 % (11.0-16.0); White Blood Count 8.6 X10*3/uL (4.8-10.8)
[2021-04-29 18:26] LABS: Anion Gap 12 (12-20); Blood Urea Nitrogen 9 mg/dL (9-16); Calcium 9.1 mg/dL (8.4-10.2); Carbon Dioxide 23 mmol/L (22-29); Chloride 108 mmol/L (96-108); Creatinine Clr Calc Pharmacy 70.8; Estimated Glomerular Filt Rate > 60; Glucose Random 88 mg/dL (60-115); Potassium 3.9 mmol/L (3.3-5.1); Sodium 139 mmol/L (135-145)
[2021-04-29 18:32] LABS: Troponin-I High Sensitivity < 3.5 ng/L (<3.5-17.0)
== END 2021-04-29 19:16 | disposition home or self-care (01) ==
PROVIDERS: Emergency Provider Internal Medicine
DX: R07.2 Precordial pain (principal); F41.1 Generalized anxiety disorder; F43.0 Acute stress reaction; Z79.899 Other long term (current) drug therapy
CPT/HCPCS: 36415; 80048; 84484; 85025; 93005; 99283; 99284

== ENCOUNTER → 2021-05-23 09:02 | Outpatient (BNVA) | payer OTHER, MEDICAID, SELFPAY | PROVIDERS: PCP Internal Medicine; Visit Provider Internal Medicine Cardiovascular Disease ==

== ENCOUNTER → 2021-06-10 12:47 | Outpatient (BNVA) | payer OTHER, MEDICAID, SELFPAY | PROVIDERS: PCP Internal Medicine; Visit Provider Dietitian, Registered | DX: R63.6 Underweight (principal) | CPT/HCPCS: 97803 ==

== ENCOUNTER → 2021-06-17 11:09 | Outpatient (REF) | payer OTHER, MEDICAID, SELFPAY ==
--- NOTE | 2021-06-17 11:12 | CA_ITS ---
Acquisition Time: 2021-06-17 11:16:42 Total Exercise Time: 00:07:31 Test Indications: Abnormal ECG Medications: Protocol: MEI Max HR: 166 BPM 93% of Pred: 177 BPM Max BP: 160/078 mmHG Max Work Load: 9.3 METS Exercise stress test with exercise 7 min 31 sec of Mei protocol, without anginal symptoms, with isolated PACs and PVCs, with normotensive response to exercise, without EKG changes meeting criteria for ischemia at peak exercise, with T wave inversions inferiorly and V4-V6 at baseline and in recovery. Echo images obtained by tech at rest and immediately post peak exercise. Definity contrast used. Test reviewed with Dr Tan. Referred By: Sj Ring Overread By: JAYLYN WHITTAKER
--- NOTE | 2021-06-17 11:12 | HM_ITS ---
Total monitoring time 14 days and 1 hour. Underlying rhythm is sinus. Minimum heart rate 54/Min. Maximum 145/Min. Average 74/Min. No atrial fibrillation or flutter or any blocks or pauses. Very rare supraventricular ectopy with minimal burden. To supraventricular episodes, longest 8 beats. No patient events. MTDD
== END ==
LOC: HO.CARD 11:09
PROVIDERS: Visit Provider Internal Medicine Cardiovascular Disease
DX: R07.89 Other chest pain (principal); R00.2 Palpitations
CPT/HCPCS: 93246; 93350; Q9957

== ENCOUNTER → 2021-08-22 07:37 | Outpatient (REF) | payer OTHER, MEDICAID, SELFPAY ==
--- NOTE | 2021-08-22 07:40 | CA_ITS ---
Transthoracic Echocardiogram Patient (Last, First, Middle): Gladis Proctor, Gender: Female Date of : 1975 Age: 46 Procedure Date: 08/22/2021 Procedure Type: Transthoracic Echocardiogram Location: OP Height: 160.02 cm Weight: 41.73 kg BSA: 1.39 m2 Heart Rate: bpm BP: 106 / 78 mmHg Warehouse Laborer: NATALY Referring MD: Sj Ring MD Senior Sql Server Dba: Sj Ring MD Symptoms: R00.2 - Palpitations Study Quality: Good ECG Rhythm: Sinus Conclusions: - Essentially normal study Findings Left Ventricle Normal left ventricular size, thickness, and systolic function. The visually estimated ejection fraction is between 65-70%. Spectral Doppler is indicative of a normal filling pattern. prominent LV false tendon noted, normal variant Right Ventricle Normal right ventricular cavity size and systolic function. There is a prominent moderator band seen in the right ventricle. Atria Both atria are normal in size. Aortic Valve Normal aortic valve structure and function. There is no aortic valve stenosis. There is no aortic valve regurgitation. Mitral Valve Normal mitral valve structure and function. There is trace mitral valve regurgitation. There is no mitral valve stenosis. Pulmonic Valve The pulmonic valve is likely normal. Tricuspid Valve Normal tricuspid valve structure. There is trace tricuspid valve regurgitation. The right ventricular systolic pressure is normal. The right ventricular systolic pressure is 24 mmHg. Normal right atrial pressure. There is no evidence of pulmonary hypertension. Great Vessels All visible segments of the aorta are normal in size. The visualized portions of the pulmonary artery and branches are normal. Venous The inferior vena cava is normal in size and collapses greater than 50% with inspiration. Pericardium/Pleural There is no evidence of pericardial effusion. Prior Study Comparison No prior study available for comparison. Measurements 2D Linear Measurements IVSd: 0.69 0.6-0.9/0.6-1.0 cm LVIDd: 4.46 3.9-5.3/4.2-5.9 cm LVIDd Index: 3.21 2.4-3.2/2.2-3.1 cm/m2 LVIDs: 2.91 2.0-3.6 cm LVPWd: 0.73 0.7-1.1 cm LA Diam: 2.40 2.7-3.8/3.0-4.0 cm LAIDs Index: 1.73 1.5-2.3 cm/m2 LV Mass: 118.19 67-162/88-224 g LV Mass Index: 85.03 43-95/49-115 g/m2 LVOT Diam: 1.90 3.0+(-)1.3 cm 2D Systolic Function EF 4C: 68.30 >55% EF 2C: 67.70 >55% EF BiP: 68.20 >55% Mitral Valve MV Pk E: 0.69 MV PK A: 0.59 MV Decel Time: 183.00 E/A: 1.20 E'Lateral: 12.00 E'Medial: 8.49 E/E' Med: 8.10 E/E' Lat: 5.80 PHT: 54.00 MVA PHT: 4.07 Decel [place]: 3.77 Aortic Valve AoV Pk Roberto: 1.19 AoV Mn Roberto: 0.85 AoV VTI: 0.26 AoV Pk Grad: 6.00 Aov Mn Grad: 3.00 RIA Cont.VTI: 2.49 LVOT LVOT Pk Roberto: 1.02 LVOT Mn Roberto: 0.71 LVOT VTI: 0.23 LVOT Pk Grad: 4.00 LVOT Mn Grad: 2.00 LVOT Diam: 1.90 LVOT Area: 2.84 Diastolic Function MV Pk E: 0.69 MV Pk A: 0.59 E/A: 1.20 E'Medial: 8.49 E/E' Med: 8.10 E' Laterial: 12.00 E/E' Lat: 5.80 Right Ventricle TAPSE (mm): 23.00 TVS' Roberto: 13.20 Tricuspid Valve TR Pk Roberto: 2.27 TR Pk Grad: 21.00 RA Press: 3.00 RVSP: 24.00 Great Vessels Aorta Ao Asc: 2.80 2.1-3.4 cm Ao Arch: 2.40 Updated in Other Vendor System with Status of Final Sj Ring MD electronically signed on 08/22/2021 9:44:46 AM with status of Final
== END ==
LOC: HO.CARD 07:37
PROVIDERS: PCP Internal Medicine; Visit Provider Internal Medicine Cardiovascular Disease
DX: R00.2 Palpitations (principal); R94.31 Abnormal electrocardiogram [ECG] [EKG]
CPT/HCPCS: 93306

== ENCOUNTER → 2021-09-03 13:32 | Outpatient (BNVA) | payer OTHER, MEDICAID, SELFPAY | PROVIDERS: PCP Internal Medicine; Referring Provider Internal Medicine; Visit Provider Nurse Practitioner Family | DX: R07.89 Other chest pain (principal); R00.2 Palpitations; Z79.899 Other long term (current) drug therapy | CPT/HCPCS: 99212 ==

== ENCOUNTER 2021-10-10 10:28 | Outpatient (REF) | payer OTHER, MEDICAID, SELFPAY ==
[2021-10-10 10:50] LABS: MANUAL DIFF FLAG NO
[2021-10-10 11:27] LABS: Basophils Percent Auto 0.4 % (0-2); Eosinophils Absolute Auto 0.1 X10*3/uL (0.0-0.4); Eosinophils Percent Auto 0.7 % (0-4); Hematocrit 41.7 % (37.0-47.0); Hemoglobin 13.2 g/dl (12.0-16.0); Imm Gran Abs Auto 0.02 X10*3/uL (0.00-0.03); Imm Gran Pct Auto 0.2 % (0.0-0.4); Lymphocytes Absolute Auto 1.9 X10*3/uL (1.2-4.9); Lymphocytes Percent Auto 21.8 % (20-40); Mean Corpuscular HGB Conc 31.7 g/dl (31.0-35.0); Mean Corpuscular Hemoglobin 26.3 pg (27.0-33.0); Mean Corpuscular Volume 83.2 fL (80.0-98.0); Mean Platelet Volume 10.3 fL (9.4-12.3); Monocytes Absolute Auto 0.7 X10*3/uL (0.1-1.2); Monocytes Percent Auto 7.9 % (2-11); Neutrophils Absolute Auto 5.9 x10*3/uL (2.0-8.3); Platelet Count 278 X10*3/uL (160-400); Red Blood Count 5.01 X10*6/uL (4.20-5.50); Red Cell Distribution Width 12.9 % (11.0-16.0); White Blood Count 8.6 X10*3/uL (4.8-10.8)
[2021-10-10 12:03] LABS: Alanine Aminotransferase 8 U/L (0-31); Albumin Level 4.2 g/dL (3.5-5.0); Alkaline Phosphatase 61 U/L (39-117); Anion Gap 11 (12-20); Aspartate Amino Transferase 15 U/L (5-31); Bilirubin Total 0.9 mg/dL (0.0-1.0); Blood Urea Nitrogen 9 mg/dL (9-16); Calcium 9.3 mg/dL (8.4-10.2); Carbon Dioxide 26 mmol/L (22-29); Chloride 107 mmol/L (96-108); Estimated Glomerular Filt Rate > 60; Glucose Random 86 mg/dL (60-115); Potassium 4.3 mmol/L (3.3-5.1); Sodium 140 mmol/L (135-145); Total Protein 6.9 g/dL (6.5-8.0)
[2021-10-10 12:11] LABS: TSH reflex Free T4 0.78 uIU/mL (0.32-4.0)
[2021-10-10 12:18] LABS: Vitamin B12 371 pg/mL (200-900)
== END 2021-10-10 10:29 | disposition home or self-care (01) ==
LOC: HO.LAB 10:28
PROVIDERS: PCP Internal Medicine; Visit Provider Internal Medicine
DX: R20.2 Paresthesia of skin (principal); R20.8 Other disturbances of skin sensation
CPT/HCPCS: 36415; 80053; 82607; 84443; 85025

== ENCOUNTER 2021-12-02 16:13 | Outpatient (REF) | payer OTHER, MEDICAID, SELFPAY ==
--- NOTE | ~2021-12-02 | MR_ITS ---
MR BRAIN WITHOUT AND WITH CONTRAST CLINICAL INFORMATION: Demyelinating disease. COMPARISON: None available. TECHNIQUE: Multiplanar, multisequence MRI of the brain was obtained before and after the intravenous administration of 4 mL of Gadavist. FINDINGS: There is no pathologic intracranial enhancement. Mild T2 signal changes within the supratentorial white matter in a nonspecific distribution. There is no hydrocephalus, extra-axial surface collection, or herniation. The major flow voids at the skull base are preserved. There is no acute infarct on diffusion-weighted imaging. There is no intracranial hemorrhage on the gradient recalled echo acquisition. The midline structures are normal. Normal variant 1 to 2 mm cerebellar tonsillar ectopia without true Chiari malformation. The cerebellum and brainstem are normal. The craniocervical junction is normal. Osseous marrow signal intensity is homogenous. The visualized soft tissues are unremarkable. MR/MR head/brain wo/w con IMPRESSION: Mild T2 signal changes within the supratentorial white matter in a nonspecific distribution. No enhancing lesions intracranially.
== END 2021-12-02 16:14 | disposition home or self-care (01) ==
LOC: HO.MRI 16:13
PROVIDERS: Visit Provider Psychiatry & Neurology Neurology
DX: G37.9 Demyelinating disease of central nervous system, unspecified (principal); R42 Dizziness and giddiness
CPT/HCPCS: 70553; A9585

== ENCOUNTER → 2021-12-09 12:37 | Outpatient (BNVA) | payer OTHER, MEDICAID, SELFPAY | PROVIDERS: PCP Internal Medicine; Visit Provider Dietitian, Registered | DX: R63.6 Underweight (principal) | CPT/HCPCS: 97803 ==

== ENCOUNTER 2022-03-22 10:03 | Outpatient (REF) | payer OTHER, MEDICAID, SELFPAY ==
--- NOTE | ~2022-03-22 | MM_ITS ---
EXAMINATION: MM SCREENING DIGITAL BREAST TOMOSYNTHESIS, BILATERAL CLINICAL INFORMATION: Screening. Asymptomatic. The lifetime risk of breast cancer based on the Tyrer-Cuzick Model is 7%. COMPARISON: Mammography: 03/02/2021, 02/14/2020, 02/08/2019 TECHNIQUE: Digital breast tomosynthesis is performed in both the craniocaudal and mediolateral oblique views along with computer-aided detection (CAD). Synthesized 2D images are generated from the tomosynthesis. FINDINGS: The breasts are heterogeneously dense, which may obscure small masses (ACR BI-RADS breast composition Category c). There are no significant masses, abnormal calcifications, or other abnormalities. Parenchymal pattern is similar to prior exams. No architectural abnormality. The axilla and skin contours are unremarkable. MM/MM tomosynthesis screening BI IMPRESSION: No mammographic evidence of malignancy. ASSESSMENT: BI-RADS 1: Negative RECOMMENDATION: Routine annual mammography screening. This patient's information was entered into a reminder system with a target due date for their next mammogram.
== END 2022-03-22 10:04 | disposition home or self-care (01) ==
LOC: HO.MAMMO 10:03
PROVIDERS: PCP Internal Medicine; Visit Provider Internal Medicine
DX: Z12.31 Encounter for screening mammogram for malignant neoplasm of breast (principal)
CPT/HCPCS: 77063; 77067

== ENCOUNTER → 2022-06-10 12:52 | Outpatient (BNVA) | payer OTHER, MEDICAID, SELFPAY | PROVIDERS: PCP Internal Medicine; Visit Provider Dietitian, Registered | DX: R63.6 Underweight (principal); Z68.1 Body mass index [BMI] 19.9 or less, adult | CPT/HCPCS: 97803 ==

== ENCOUNTER → 2022-07-23 14:21 | Outpatient (BNVA) | payer OTHER, MEDICAID, SELFPAY | PROVIDERS: PCP Internal Medicine; Referring Provider Internal Medicine; Visit Provider Nurse Practitioner Family | DX: R00.2 Palpitations (principal); R07.89 Other chest pain | CPT/HCPCS: 93005 ==

== ENCOUNTER 2022-07-28 08:29 | Outpatient (REF) | payer OTHER, MEDICAID, SELFPAY ==
[2022-07-28 10:09] LABS: Free T4 (Free Thyroxine) 1.24 ng/dL (0.71-1.85); Thyroid Stimulating Hormone 0.76 uIU/mL (0.32-4.0)
== END 2022-07-28 08:30 | disposition home or self-care (01) ==
LOC: HO.LAB 08:29
PROVIDERS: PCP Internal Medicine; Visit Provider Internal Medicine
DX: Z00.00 Encounter for general adult medical examination without abnormal findings (principal); R00.2 Palpitations; Z13.31 Encounter for screening for depression
CPT/HCPCS: 36415; 84439; 84443

== ENCOUNTER → 2022-12-08 12:37 | Outpatient (BNVA) | payer OTHER, MEDICAID, SELFPAY | PROVIDERS: PCP Internal Medicine; Visit Provider Dietitian, Registered | DX: R63.6 Underweight (principal) | CPT/HCPCS: 97803 ==

== ENCOUNTER 2023-03-26 14:17 | Outpatient (AMB) | payer OTHER, MEDICAID, SELFPAY ==
--- NOTE | 2023-03-26 14:24 | MHC.OFFVIS ---
Intake Vital Signs 03/26/23 14:25 Height 5 ft 3 in Weight 101 lb 13.657 oz BMI 18.0 BP 125/83 Blood Pressure Location Rt brachial Position Sitting Pulse 72 Intake Visit Reasons: Colonoscopy Screening Intake Note: Patient presents to in office visit today as a new patient for colonoscopy screening. CC: Patient reports lately she has been feeling like the food comes up sometimes. Denies other GI symptoms. Allergies apple Allergy (Unknown, Verified 03/26/23 14:31) Itching mouth and ears house dust mite Allergy (Unknown, Verified 03/26/23 14:31) Itching peach Allergy (Unknown, Verified 03/26/23 14:31) itching mouth and ears pepper (genus Capsicum) Allergy (Unknown, Verified 03/26/23 14:31) itching mouth and ears strawberry Allergy (Unknown, Verified 03/26/23 14:31) itching mouth and ears avocado Adverse Reaction (Unknown, Verified 03/26/23 14:31) gagging, her voice changes Medication List - Last Reconciled 03/26/23 by Di Jacobs PA-C multivitamin 1 tab PO DAILY HPI HPI Comments History of Present Illness Details A 47 y/o female referred for index screening colonoscopy- Seen by Dr. Marie back a couple years ago for upper abdominal pain Mother had adenoma colon polyp P-GF colon cancer- unknown age Appetite is good - she tends to skip meals-she does follow with [facility]ung sewer She follows up with cardiology annually no cardiac diagnoses No nausea, vomiting, abdominal pain, hematochezia, hematemesis, fever chills PFSH Medical History (Updated 03/26/23 @ 15:06 by Di Jacobs PA-C) Abdominal pain Anxiety Surgical History Hx of section Hx of tubal ligation Hx of tonsillectomy Family History Father Hx of prostatic malignancy Hx of diabetes mellitus Family hx of hypertension Mother Colon polyp Sister No problems noted. Brother No problems noted. 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 Review of Systems Const All systems reviewed & are unremarkable except as noted in HPI and below Card Denies chest pain and Denies dyspnea Resp Denies dyspnea GI Denies abdominal pain, Denies nausea and Denies vomiting Physical Exam Vital Signs: Last Vital Signs Pulse 72 03/26/23 14:25 BP 125/83 03/26/23 14:25 BMI result Body Mass Index 18.0 Const General: cooperative, comfortable and no acute distress Nutritional Appearance: thin and underweight Orientation/consciousness: patient oriented x3 Limitations: no limitations Eyes Sclerae: sclerae normal Resp Effort & Inspection: normal respiratory effort and able to speak in complete sentences Auscultation: clear to auscultation bilaterally, no rales, no rhonchi and no wheezes Cardio Rate: regular rate Rhythm: regular rhythm Heart sounds: S1 normal heart sound present and S2 normal heart sound present GI Palpation (GI): Soft to palpation and nontender Auscultation: normal bowel sounds Skin General skin exam: no rashes or lesions noted Neuro General: patient oriented x3 Extrem General: Yes full ROM Psych Appearance: grossly normal and well kempt Mental Status: mental status grossly normal Speech and movement: Normal speech and movement present and Clear speech present Affect: normal affect Attitude: cooperative Thought process: Normal thought process present Thought content: Normal thought content present Insight: Good insight present (Psych) Judgement: Good judgement present (Psych) Assessment & Plan Assessment & Plan (1) Encounter for screening colonoscopy: Comment: Very pleasant 47-year-old female family history colon polyps Thin, follows [facility] Code(s): Z12.11 - Encounter for screening for malignant neoplasm of colon (2) Other family history of colon polyps: Comment: Mother history of colon polyps Code(s): Z83.718 - Other family history of colon polyps Plan Index screening colonoscopy MiraLax Gatorade prep Orders: Orders Colonoscopy - GI Use Only Today Z12.11 - Encounter for screening for malignant neoplasm of colon Medications: New polyethylene glycol 3350 (Miralax) Take as directed by mouth the day before your procedure. 238 grams PO ONCE 1 day 238 grams 0RF laxative effect bisacodyl (Dulcolax (bisacodyl)) Day before procedure, prep day Take 4 tablets by mouth upon awakening followed by large glass of water 20 mg (4 x 5 mg) PO ONCE 1 day 4 tabs 0RF colonoscopy prep Z12.11 - Encounter for screening for malignant neoplasm of colon Patient Instructions: Very pleasant 47-year-old thin female referred for index screening colonoscopy She follows with [facility] sewer Index screening colonoscopy MiraLax Gatorade prep Literature given Encouraged to call questions or concerns Coding Level of Care Code New Pt Level 3 (62233) Diagnoses Encounter for screening colonoscopy Z12.11 Other family history of colon polyps Z83.718 Time Spent (min) 25
[2023-03-26 14:25] VITALS: BP 125/83; PULSE 72; BMI 18.0
== END 2023-03-26 15:15 | disposition home or self-care (01) ==
PROVIDERS: PCP Internal Medicine; Visit Provider Physician Assistant
DX: Z12.11 Encounter for screening for malignant neoplasm of colon (principal); Z83.718 Family history of other colon polyps; Z01.818 Encounter for other preprocedural examination
CPT/HCPCS: 99203

== ENCOUNTER → 2023-03-26 14:17 | Outpatient (BNVA) | payer OTHER, MEDICAID, SELFPAY | PROVIDERS: PCP Internal Medicine; Visit Provider Physician Assistant ==

== ENCOUNTER → 2023-04-04 08:30 | Outpatient (BNV) | payer OTHER, MEDICAID, SELFPAY | PROVIDERS: PCP Internal Medicine; Visit Provider Radiology Diagnostic Radiology | DX: Z12.31 Encounter for screening mammogram for malignant neoplasm of breast (principal) | CPT/HCPCS: 77063; 77067 ==

== ENCOUNTER 2023-04-04 08:38 | Outpatient (REF) | payer OTHER, MEDICAID, SELFPAY ==
--- NOTE | ~2023-04-04 | MM_ITS ---
EXAMINATION: MM SCREENING DIGITAL BREAST TOMOSYNTHESIS, BILATERAL CLINICAL INFORMATION: Screening. Asymptomatic. COMPARISON: Mammography: This study is compared with prior exams dating back to 2019. TECHNIQUE: Digital breast tomosynthesis is performed in both the craniocaudal and mediolateral oblique views along with computer-aided detection (CAD). Synthesized 2D images are generated from the tomosynthesis. FINDINGS: The breasts are extremely dense, which lowers the sensitivity of mammography (ACR BI-RADS breast composition Category d). There are no significant masses, abnormal calcifications, or other abnormalities. MM/MM tomosynthesis screening BI IMPRESSION: No mammographic evidence of malignancy. ASSESSMENT: BI-RADS BI-RADS 1 - Negative RECOMMENDATION: Routine annual mammography screening. 1 year F/U This examination should not preclude the clinical evaluation of a suspicious palpable abnormality. This patient's information was entered into a reminder system with a target due date for their next mammogram.
== END 2023-04-04 08:39 | disposition home or self-care (01) ==
LOC: HO.MAMMO 08:38
PROVIDERS: PCP Internal Medicine; Visit Provider Internal Medicine
DX: Z12.31 Encounter for screening mammogram for malignant neoplasm of breast (principal)
CPT/HCPCS: 77063; 77067

== ENCOUNTER 2023-07-23 14:54 | Outpatient (AMB) | payer OTHER, MEDICAID, SELFPAY ==
[2023-07-23 15:07] VITALS: BP 114/70; PULSE 66; BMI 18.4
--- NOTE | 2023-07-23 15:07 | MHC.OFFVIS ---
Intake Vital Signs 07/23/23 15:07 Height 5 ft 3 in Weight 103 lb 9.876 oz BMI 18.4 BP 114/70 Blood Pressure Location Lt brachial Position Sitting Pulse 66 Pulse Source Monitor Intake Visit Reasons: 1 yr follow up Septic Tank Setter Required: No Allergies apple Allergy (Unknown, Verified 07/23/23 15:09) Itching mouth and ears house dust mite Allergy (Unknown, Verified 07/23/23 15:09) Itching peach Allergy (Unknown, Verified 07/23/23 15:09) itching mouth and ears pepper (genus Capsicum) Allergy (Unknown, Verified 07/23/23 15:09) itching mouth and ears strawberry Allergy (Unknown, Verified 07/23/23 15:09) itching mouth and ears avocado Adverse Reaction (Unknown, Verified 07/23/23 15:09) gagging, her voice changes Medication List - Last Reconciled 07/23/23 by Mariam Blanton NP-C bisacodyl (Dulcolax (bisacodyl)) 20 mg (4 x 5 mg) PO ONCE 1 day multivitamin 1 tab PO DAILY polyethylene glycol 3350 (Miralax) 238 grams PO ONCE 1 day HPI 1 yr follow up HPI Details Gladis is a 47-year-old female with past medical history of abnormal EKG, atypical chest discomfort, heart palpitations consistent with PACs, short SVT runs who presents for follow-up. Today she reports that since her last visit she has been feeling well. She has not had any issues with chest discomfort at rest or with activity. No heart palpitations lasting more than a few seconds. No presyncope, syncope, falls. No shortness of breath, PND, orthopnea or edema. She reports good activity tolerance [facility] Medical History Abdominal pain Anxiety Surgical History Hx of section Hx of tubal ligation Hx of tonsillectomy Family History Father Hx of prostatic malignancy Hx of diabetes mellitus Family hx of hypertension Mother Colon polyp Sister No problems noted. Brother No problems noted. 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 Review of Systems Const All systems reviewed & are unremarkable except as noted in HPI and below Card Denies chest pain, Denies rapid heart rate, Denies irregular heart rhythm and Denies dyspnea on exertion Resp Denies dyspnea on exertion Physical Exam Vital Signs: Last Vital Signs Pulse 66 07/23/23 15:07 BP 114/70 07/23/23 15:07 BMI result Body Mass Index 18.4 Const General: cooperative, healthy appearing, comfortable and no acute distress Orientation/consciousness: patient oriented x3 Neck Neck: Yes normal visual inspection Resp Effort & Inspection: normal respiratory effort Auscultation: clear to auscultation bilaterally, no crackles, no rales, no rhonchi and no wheezes Cardio Jugular venous distension: no JVD Rate: regular rate Rhythm: regular rhythm Heart sounds: S1 normal heart sound present, S2 normal heart sound present, no murmurs and no rubs Neuro General: patient oriented x3 Extrem General: Yes normal to inspection, No no pedal edema and No calf tenderness Psych Appearance: grossly normal Mental Status: mental status grossly normal Speech and movement: Normal speech and movement present Office Procedures EKG Details: Today, read by me, normal sinus rhythm, right axis deviation, septal Q, ST and T-wave abnormality inferiorly, overall no change from prior EKG, rate 66 [id number], Complete Assessment & Plan Assessment & Plan (1) Palpitations: Code(s): R00.2 - Palpitations Plan: History of Heart palpitations described as brief rapid rates that occcur randomly lasting few seconds and resolving, occurring a few times a month. No sustained rapid heartbeats. Holter monitor done on 06/17/21 for 14 days showed SR, no Afib, average heart rate 74, heart rate range 54 to 145, rare SVE, short SVE run with longest 8 beats. She is likely feeling these short SVE runs as this matches the description of her palpitations. Her episodes are very brief and she has learned to manage it. She is able to identify what her triggers are. Will continue to avoid daily medical management at present. Reviewed ongoing avoidance of stimulants such as caffeine and chocolates. Encouraged Exercise as tolerated. Instructed on vagal maneuvers for any sustained palpitations. To call this office if her palpitations are increasing. Emergency care if needed for any sustained rapid heart palpitations. Cardiology follow-up as needed. (2) Chest discomfort: Code(s): R07.89 - Other chest pain Plan: Previously reported atypical chest discomfort. Her EKGs show SR, T wave inversions inferiorly. EKG done today showing sinus rhythm with nonspecific ST and T abnormality inferiorly - no significant change from prior. She Underwent stress echo on 06/17/21 showing good exercise tolerance, no anginal symptoms, no echo evidence of ischemia. Echocardiogram done on 08/22/21 was normal. She currently denies any chest discomfort at rest or with activity. No further testing needed at present. Offered reassurance that EKG shows nonspecific findings. Plan Chart review, documentation, interview and assessment Coding Level of Care Code Est Pt Level 3 (42016) Diagnoses Palpitations R00.2 Chest discomfort R07.89 CPT Codes EKG - CPT: 00193-[id number], Complete ([id number]) Time Spent (min) 22
== END 2023-07-23 15:27 | disposition home or self-care (01) ==
PROVIDERS: PCP Internal Medicine; Visit Provider Nurse Practitioner Family
DX: R00.2 Palpitations (principal); R07.89 Other chest pain
CPT/HCPCS: 93010; 99213

== ENCOUNTER → 2023-07-23 14:54 | Outpatient (BNVA) | payer OTHER, MEDICAID, SELFPAY | PROVIDERS: Visit Provider Nurse Practitioner Family | DX: R00.2 Palpitations (principal); R07.89 Other chest pain | CPT/HCPCS: 93005 ==

== ENCOUNTER 2023-07-27 08:23 | Outpatient (AMB) | payer OTHER, MEDICAID, SELFPAY ==
--- NOTE | 2023-07-27 08:31 | MHC.AMNUTRGE ---
Intake VS Expanded 07/27/23 08:32 07/30/23 12:45 Height 5 ft 3 in 5 ft 3 in Weight 104 lb 11.513 oz 105 lb BMI 18.5 18.6 Intake Visit Reasons: monitor weight/CONFIRMED Allergies apple Allergy (Unknown, Verified 07/23/23 15:09) Itching mouth and ears house dust mite Allergy (Unknown, Verified 07/23/23 15:09) Itching peach Allergy (Unknown, Verified 07/23/23 15:09) itching mouth and ears pepper (genus Capsicum) Allergy (Unknown, Verified 07/23/23 15:09) itching mouth and ears strawberry Allergy (Unknown, Verified 07/23/23 15:09) itching mouth and ears avocado Adverse Reaction (Unknown, Verified 07/23/23 15:09) gagging, her voice changes HPI Nutrition Presentation Details Pt presents for MNT for underweight Pt reports feeling good Having 4 meals per day, incorporating protein/starches in all foods vegetables: 2-3 x/wk fruits: 1-2/d dairy: 3-4 service/d Beverages: water, milk, juice, maltas denies: constipation, diarrhea, vomiting takes a MVI on and off GCO-Sznkacb-Aa.Jeor Equation Height 5 ft 3 in Weight 105 lb Resting Metabolic Rate 1093.52 Calculated Activity Level Sedentary Calories Needed to Maintain Weight 1312.22 Most Recent Diabetes Results: No Data to Display [facility] Medical History Abdominal pain Anxiety Surgical History Hx of section Hx of tubal ligation Hx of tonsillectomy Family History Father Hx of prostatic malignancy Hx of diabetes mellitus Family hx of hypertension Mother Colon polyp Sister No problems noted. Brother No problems noted. 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 98-100 lbs- reached as per stated (06/10/2022) Wt to be considered normal range as per BMI: > 105 lbs Recommended weight as per [place] body weight for 5'3 is 115 lbs Pt to continue having 4 meals/day , gradually add 500 calories per day to promote weight gain /prvent weight loss , including a variety of foods ? EST Kcal NEEDS as per [place] [address] Jeor x 2 = 2634 + 1000 calories for weight gain :? 3634 kcal? (20-30 % prot, 20-30% fat, 40-50% carb) + Additional calories to promote weight gain/prevention of wt loss ? USED? WT : 52 kg ( as ideal body weight for 65 tall woman) est fluid needs as per 25 ml/kg ideal bw:? 1560? ml Patient Instructions: Resume adding carnation instant breakfast to whole milk , have 2 a day (260 suly) Bring peanut butter/jelly as snack Walk 10 minutes daily Coding Level of Care Code Nutr Indiv Subseq (44009) Diagnoses Underweight R63.6 Time Spent (min) 20
[2023-07-27 08:32] VITALS: BMI 18.5
[2023-07-30 12:45] VITALS: BMI 18.6
== END 2023-07-27 08:55 | disposition home or self-care (01) ==
PROVIDERS: PCP Internal Medicine; Visit Provider Dietitian, Registered
DX: R63.6 Underweight (principal)

== ENCOUNTER → 2023-07-27 08:23 | Outpatient (BNVA) | payer OTHER, MEDICAID, SELFPAY | PROVIDERS: PCP Internal Medicine; Visit Provider Dietitian, Registered | DX: R63.6 Underweight (principal); Z68.1 Body mass index [BMI] 19.9 or less, adult; Z71.3 Dietary counseling and surveillance | CPT/HCPCS: 97803 ==

== ENCOUNTER 2023-08-27 07:12 | Day surgery (SDC) | payer OTHER, MEDICAID, SELFPAY ==
--- NOTE | 2023-08-25 14:34 | P.CONAN_ITS ---
HPI - Anesthesia Eval Consult details Narrative: 48yo F for Colonoscopy PMFSH Active Problems Active Problems: All Active Problems (Updated 03/26/23 @ 15:06 by Di Jacobs PA-C) Other family history of colon polyps (Acute) Encounter for screening colonoscopy (Acute) Underweight (Acute) Palpitations (Acute) Chest discomfort (Acute) Abdominal pain (Acute) Severely underweight adult (Acute) Past Medical History Medical History Abdominal pain Anxiety Family History Family History Father Hx of prostatic malignancy Hx of diabetes mellitus Family hx of hypertension Mother Colon polyp Sister No problems noted. Brother No problems noted. 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 Allergies Allergy/AdvReac Type Severity Reaction Status Date / Time apple Allergy Unknown Itching Verified 07/23/23 15:09 mouth and ears house dust mite Allergy Unknown Itching Verified 07/23/23 15:09 peach Allergy Unknown itching Verified 07/23/23 15:09 mouth and ears pepper (genus Capsicum) Allergy Unknown itching Verified 07/23/23 15:09 mouth and ears strawberry Allergy Unknown itching Verified 07/23/23 15:09 mouth and ears avocado AdvReac Unknown gagging, Verified 07/23/23 15:09 her voice changes Home Medications Medication Instructions Recorded Confirmed Last Taken Type multivitamin 1 tab PO DAILY 07/02/20 07/23/23 Unknown History Assessment and Plan Assessment Anesthesia Assessment: Chart Reviewed
[2023-08-27 07:49] VITALS: BP 105/78; PULSE 85; RESP 16; TEMP 37.1; O2SAT 98; BMI 18.3
[2023-08-27 07:55] VITALS: BMI 18.3
[2023-08-27] MEDS: Lactated Ringers 1,000 ML 100 ML IVCONT (08:03)
--- NOTE | 2023-08-27 08:18 | HO.ANESPROP2 ---
[facility] Active Problems Active Problems: All Active Problems (Updated 03/26/23 @ 15:06 by Di Jacobs PA-C) Other family history of colon polyps (Acute) Encounter for screening colonoscopy (Acute) Underweight (Acute) Palpitations (Acute) Chest discomfort (Acute) Abdominal pain (Acute) Severely underweight adult (Acute) Past Medical History Medical History Abdominal pain Anxiety Functional capacity: independent ambulation Family History Family History Father Hx of prostatic malignancy Hx of diabetes mellitus Family hx of hypertension Mother Colon polyp Sister No problems noted. Brother No problems noted. 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 Allergies Allergy/AdvReac Type Severity Reaction Status Date / Time apple Allergy Unknown Itching Verified 07/23/23 15:09 mouth and ears house dust mite Allergy Unknown Itching Verified 07/23/23 15:09 peach Allergy Unknown itching Verified 07/23/23 15:09 mouth and ears pepper (genus Capsicum) Allergy Unknown itching Verified 07/23/23 15:09 mouth and ears strawberry Allergy Unknown itching Verified 07/23/23 15:09 mouth and ears avocado AdvReac Unknown gagging, Verified 07/23/23 15:09 her voice changes Active Medications: Current Medications Lactated Ringer's (Lr) 1,000 mls @ 100 mls/hr IVCONT .Q10H ALEXI Last Admin: 08/27/23 08:03 Dose: 100 mls/hr Home Medications Medication Instructions Recorded Confirmed Last Taken Type multivitamin 1 tab PO DAILY 07/02/20 07/23/23 Unknown History Exam Height,Weight and Vital Signs: Height 5 ft 3 in Weight 46.777 kg Last Vital Signs Temp 98.7 F 08/27/23 07:49 Pulse 85 08/27/23 07:49 Resp 16 08/27/23 07:49 BP 105/78 08/27/23 07:49 Pulse Ox 98 08/27/23 07:49 O2 Del Method Room Air 08/27/23 07:49 Airway Mallampati Class: I TM Dist: >3cm Neck ROM: Full Heart: RRR Lungs: CTA Assessment and Plan Assessment Anesthesia Assessment: Anesthesia Plan Discussed Final Anesthetic Review History of Problems with Anesthesia: No ASA Class: II Final Preanesthetic Review: Meds/Allgs Chart Reviewed, Consent Obtained/Reviewed and Anes Risks/Benef Reviewed Patient Risk: Low Anesthetic Plan Anesthetic Plan: MAC: Disposition: Standard PACU
--- NOTE | 2023-08-27 08:23 | MHC.SHP ---
Pre-Procedural Eval Section A - 24 Hr Update-Section A only Date of Service: 08/27/23 Section B - Complete if H&P > 30 days Chief Complaint: screening Details of Present Illness: PMH: Abdominal pain Anxiety Surgical History Hx of section Hx of tubal ligation Hx of tonsillectomy Allergies: Allergies Allergy/AdvReac Type Severity Reaction Status Date / Time apple Allergy Unknown Itching Verified 07/23/23 15:09 mouth and ears house dust mite Allergy Unknown Itching Verified 07/23/23 15:09 peach Allergy Unknown itching Verified 07/23/23 15:09 mouth and ears pepper (genus Capsicum) Allergy Unknown itching Verified 07/23/23 15:09 mouth and ears strawberry Allergy Unknown itching Verified 07/23/23 15:09 mouth and ears avocado AdvReac Unknown gagging, Verified 07/23/23 15:09 her voice changes Review of Systems Review of Systems Comment: 10 point ROS negative Exam Surgical H&P Exam: Normal: HEENT, Normal: Heart, Normal: Lungs, Normal: Extremities, Normal: Abdomen, Normal: Skin and Normal: Neurological Plan Diagnosis/Plan: Unchanged I have reviewed the history and physical and performed a pertinent physical examination on my patient. No changes have occurred unless specified. Time Spent With Patient Time: Total time managing care of this patient today ____ minutes.
--- NOTE | 2023-08-27 08:48 | P.OP_ITS ---
Operative Note Operative Note Date of Service: 08/27/23 Narrative: Procedure: Colonoscopy Indication: Screening Endoscopist: Lorna Block MD Anesthesia Provider: Dr Smita Izquierdo Anesthesia type: MAC Instrument: Olympus [id number]-[id number] Consent: Indication, risks vs benefits, and alternatives were discussed with the patient who gave written informed consent to proceed. EKG, pulse, pulse oximetry and blood pressure were monitored throughout the procedure. Please see anesthesia flowsheet. Procedure: The patient was brought to the procedure room and placed in the left lateral decubitus position. IV medications were administered by the anesthesia provider in attendance. A digital rectal exam was performed which was normal. A distal attachment cap was affixed to the colonoscope which was then inserted through the anus and advanced through the colon to the cecum at 70 cm,and terminal ileum. Ileocecal valve and appendiceal orifice were identified. Mucosa was carefully examined under high definition white light as the instrument was slowly withdrawn in a retrograde panoramic fashion. Retroflexion was performed in ascending colon. Retroflexion could not be performed in the rectum due to short rectum. The procedure was not difficult. There were no immediate obvious complications. The quality of the prep was BBPS: 3+3+3 = excellent Withdrawal time 10 minutes. Limitations: No limitations. Findings: Mucosa: Normal to cecum and terminal ileum. Protruding lesions: * Small internal hemorrhoids without stigmata of recent bleeding. Impression: 1. Normal colon and terminal ileum mucosa 2. Internal hemorrhoids Recommendations: - Repeat colonoscopy in 10 years for asymptomatic colorectal cancer screening
[2023-08-27 08:54] VITALS: BP 94/55; PULSE 76; RESP 16; TEMP 36.2; O2SAT 97
[2023-08-27 09:09] VITALS: BP 103/65; PULSE 81; RESP 18; TEMP 36.6; O2SAT 100
--- NOTE | 2023-08-27 11:33 | HO.POSTANES ---
Post Anesthesia Evaluation Post Anesthesia Evaluation Date of Service: 08/27/23 Vital Signs: Vital Signs Temp Pulse Resp BP Pulse Ox O2 Del Method 08/27/23 09:09 97.8 F 81 18 103/65 100 Room Air 08/27/23 08:54 97.1 F 76 16 94/55 L 97 Room Air 08/27/23 07:49 98.7 F 85 16 105/78 98 Room Air Anesthesia: Monitored Mental Status: Awake Pain Control: Satisfactory Nausea/Vomiting: None Hydration: Adequate Anesthesia-Related Issues: No Anes. Related Issues
== END 2023-08-27 10:00 | disposition home or self-care (01) ==
PROVIDERS: PCP Internal Medicine; Visit Provider Internal Medicine
PROC: 0DJD8ZZ Inspection of Lower Intestinal Tract, Via Natural or Artificial Opening Endoscopic (ICD-10-PCS; CPT 45378; principal; 2023-08-27 08:20)
DX: Z12.11 Encounter for screening for malignant neoplasm of colon (principal); Z83.718 Family history of other colon polyps; K64.8 Other hemorrhoids; F41.9 Anxiety disorder, unspecified; Z98.51 Tubal ligation status; Z79.899 Other long term (current) drug therapy
CPT/HCPCS: 45378; J2704

== ENCOUNTER → 2023-08-27 07:12 | Outpatient (BNV) | payer OTHER, MEDICAID, SELFPAY | PROVIDERS: PCP Internal Medicine; Visit Provider Internal Medicine | DX: Z12.11 Encounter for screening for malignant neoplasm of colon (principal) | CPT/HCPCS: 45378 ==

== ENCOUNTER 2024-03-10 08:42 | Outpatient (REF) | payer BC, MEDICAID, SELFPAY ==
[2024-03-10 09:40] LABS: MANUAL DIFF FLAG NO
[2024-03-10 10:11] LABS: Basophils Percent Auto 0.4 % (0-2); Eosinophils Absolute Auto 0.1 X10*3/uL (0.0-0.4); Hematocrit 41.8 % (37.0-47.0); Hemoglobin 13.3 g/dl (12.0-16.0); Imm Gran Abs Auto 0.02 X10*3/uL (0.00-0.03); Imm Gran Pct Auto 0.4 % (0.0-0.4); Lymphocytes Absolute Auto 1.5 X10*3/uL (1.2-4.9); Mean Corpuscular HGB Conc 31.8 g/dl (31.0-35.0); Mean Corpuscular Hemoglobin 26.4 pg (27.0-33.0); Mean Corpuscular Volume 82.9 fL (80.0-98.0); Monocytes Absolute Auto 0.5 X10*3/uL (0.1-1.2); Monocytes Percent Auto 9.7 % (2-11); Neutrophils Percent Auto 58.5 % (45-73); Platelet Count 334 X10*3/uL (160-400); Red Blood Count 5.04 X10*6/uL (4.20-5.50); Red Cell Distribution Width 12.9 % (11.0-16.0); White Blood Count 5.1 X10*3/uL (4.8-10.8)
[2024-03-10 11:07] LABS: Alanine Aminotransferase 10 U/L (0-31); Albumin Level 4.3 g/dL (3.5-5.0); Alkaline Phosphatase 70 U/L (39-117); Anion Gap 5 (12-20); Aspartate Amino Transferase 15 U/L (5-31); Bilirubin Total 0.3 mg/dL (0.0-1.0); Blood Urea Nitrogen 18 mg/dL (9-16); Calcium 9.1 mg/dL (8.4-10.2); Carbon Dioxide 30 mmol/L (22-29); Chloride 111 mmol/L (96-108); Estimated Glomerular Filt Rate > 60; Glucose Random 106 mg/dL (60-115); Potassium 4.3 mmol/L (3.3-5.1); Sodium 142 mmol/L (135-145); Total Protein 7.1 g/dL (6.5-8.0)
[2024-03-10 11:09] LABS: Thyroid Stimulating Hormone 1.06 uIU/mL (0.32-4.0)
== END 2024-03-10 08:43 | disposition home or self-care (01) ==
LOC: HO.LAB 08:42
PROVIDERS: PCP Internal Medicine; Visit Provider Dietitian, Registered
DX: R51.9 Headache, unspecified (principal); R63.6 Underweight; Z71.3 Dietary counseling and surveillance; Z68.1 Body mass index [BMI] 19.9 or less, adult
CPT/HCPCS: 36415; 80053; 84443; 85025; 97803

== ENCOUNTER → 2024-03-10 08:42 | Outpatient (AMB) | payer OTHER, MEDICAID, SELFPAY ==
--- NOTE | 2024-03-10 08:47 | A.OFFVIS_ITS ---
VS Expanded 03/10/24 08:48 Height 5 ft 3 in Weight 101 lb 10 oz BMI 18.0 Intake Visit Reasons: Monitor weight/LVM Allergies apple Allergy (Unknown, Verified 07/23/23 15:09) Itching mouth and ears house dust mite Allergy (Unknown, Verified 07/23/23 15:09) Itching peach Allergy (Unknown, Verified 07/23/23 15:09) itching mouth and ears pepper (genus Capsicum) Allergy (Unknown, Verified 07/23/23 15:09) itching mouth and ears strawberry Allergy (Unknown, Verified 07/23/23 15:09) itching mouth and ears avocado Adverse Reaction (Unknown, Verified 07/23/23 15:09) gagging, her voice changes Nutrition Presentation Details: Pt presents for 6 m MNT f/u for underweight Wt hx: BMI at today's visit at 18.0 (02/2024), previous visit at 18.5 on 07/2023 Pt reports the highest adult weight, even while preg was 103 lbs. Pt reports challenges with keeping occupied with daily activities and not hungry in AM or skipping AM meal due to lack of time/lack of meal prep. Reports typically having better appetite in the evening meals consist of B: oatmeal made with water (AM but often skips) Lunch: sandwich ,water (fast food rest) dinner: rice/ulises /porkchop water or oJ snack: pizza, water or OJ other snack throughout the day : breakfast biscuit, crackers , pepperoni dairy: none d/t upset stomach fruits: juice 0-1/d vegetables: 0-2x/wk protein : 8-12 oz /day Daily life activities (work +, [employer] work + [employer] activities weekly, children sports BS Monitoring Most Recent Diabetes Results: Creatinine 0.69 mg/dL (0.5-1.4) 03/10/24 Blood Urea Nitrogen 18 mg/dL (9-16) H 03/10/24 Sodium 142 mmol/L (135-145) 03/10/24 Potassium 4.3 mmol/L (3.3-5.1) 03/10/24 Chloride 111 mmol/L (96-108) H 03/10/24 Carbon Dioxide 30 mmol/L (22-29) H 03/10/24 Calcium 9.1 mg/dL (8.4-10.2) 03/10/24 AST 15 U/L (5-31) 03/10/24 ALT 10 U/L (0-31) 03/10/24 Total Protein 7.1 g/dL (6.5-8.0) 03/10/24 Albumin 4.3 g/dL (3.5-5.0) 03/10/24 PFSH Medical History Abdominal pain Anxiety Surgical History Hx of section Hx of tubal ligation Hx of tonsillectomy Family History Father Hx of prostatic malignancy Hx of diabetes mellitus Family hx of hypertension Mother Colon polyp Sister No problems noted. Brother No problems noted. 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 98-103 lbs- reached in 2022, continues 02/2024 - will continue to work on prevention of weight loss and including nutrient dense foods Wt to be considered normal range as per BMI: > 105 lbs Recommended weight as per [place] body weight for 5'3 is 115 lbs Pt to continue having 4 meals/day , gradually add 500 calories per day to promote weight gain /prvent weight loss , including a variety of foods ? EST Kcal NEEDS as per [place] [address] [place] x 2 = 2634 + 1000 calories for weight gain :? 3634 kcal? (20-30 % prot, 20-30% fat, 40-50% carb) + Additional calories to promote weight gain/prevention of wt loss ? USED? WT : 52 kg ( as ideal body weight for 65 tall woman) est fluid needs as per 25 ml/kg ideal bw:? 1560? ml Patient Instructions: Vary breakfast items: oatmeal packets - flavored ok with milk or dairy alternatives , add nut buttes of choice Breakfast sandwich nutrigrain bar and nuts see list of options keep hydrated by choosing juices, milk , flavored milk , vitamin fortified juices /juice drinks Coding Level of Care Code Nutr Indiv Subseq (26299) Diagnoses Underweight R63.6 Time Spent (min) 20
[2024-03-10 08:48] VITALS: BMI 18.0
== END ==
PROVIDERS: PCP Internal Medicine; Visit Provider Dietitian, Registered
DX: R63.6 Underweight (principal)

== ENCOUNTER 2024-04-09 08:30 | Outpatient (REF) | payer BC, MEDICAID, SELFPAY ==
--- NOTE | ~2024-04-09 | MM_ITS ---
EXAMINATION: MM SCREENING DIGITAL BREAST TOMOSYNTHESIS, BILATERAL CLINICAL INFORMATION: Screening. Asymptomatic. COMPARISON: Mammography: Comparison is made with available priors TECHNIQUE: Digital breast mammography with tomosynthesis is performed in both the craniocaudal and mediolateral oblique views along with computer-aided detection (CAD). FINDINGS: The breasts are heterogeneously dense, which may obscure small masses (ACR BI-RADS breast composition Category c). There are no significant masses, abnormal calcifications, or other abnormalities. MM/MM tomosynthesis screening BI IMPRESSION: No mammographic evidence of malignancy. ASSESSMENT: BI-RADS BI-RADS 1 - Negative RECOMMENDATION: Routine annual mammography screening. 1 year F/U This examination should not preclude the clinical evaluation of a suspicious palpable abnormality. This patient's information was entered into a reminder system with a target due date for their next mammogram. Electronically signed by: Korina Bejarano DO 04/22/2024 10:08 AM [place]
== END 2024-04-09 08:31 | disposition home or self-care (01) ==
LOC: HO.MAMMO 08:30
PROVIDERS: PCP Internal Medicine; Visit Provider Internal Medicine
DX: Z12.31 Encounter for screening mammogram for malignant neoplasm of breast (principal)
CPT/HCPCS: 77063; 77067

== ENCOUNTER → 2024-04-09 08:30 | Outpatient (BNV) | payer BC, MEDICAID, SELFPAY | PROVIDERS: PCP Internal Medicine; Visit Provider Internal Medicine | DX: Z12.31 Encounter for screening mammogram for malignant neoplasm of breast (principal) | CPT/HCPCS: 77063; 77067 ==

== ENCOUNTER → 2025-04-15 08:45 | Outpatient (BNV) | payer BC, MEDICAID, SELFPAY | PROVIDERS: PCP Internal Medicine; Visit Provider Internal Medicine | DX: Z12.31 Encounter for screening mammogram for malignant neoplasm of breast (principal) | CPT/HCPCS: 77063; 77067 ==

== ENCOUNTER 2025-04-15 08:47 | Outpatient (REF) | payer BC, MEDICAID, SELFPAY ==
--- NOTE | ~2025-04-15 | MM_ITS ---
EXAMINATION: MM SCREENING DIGITAL BREAST TOMOSYNTHESIS, BILATERAL CLINICAL INFORMATION: Screening. Asymptomatic. COMPARISON: Mammography: Comparison is made with available priors TECHNIQUE: Digital breast mammography with tomosynthesis is performed in both the craniocaudal and mediolateral oblique views along with computer-aided detection (CAD). FINDINGS: The breasts are heterogeneously dense, which may obscure small masses. Left: There are no significant masses, abnormal calcifications, or other abnormalities. Right: Asymmetry inferior breast posterior depth on MLO view. No suspicious calcifications or other abnormal findings. MM/MM tomosynthesis screening BI IMPRESSION: Additional imaging is recommended ASSESSMENT: BI-RADS Category 0: Incomplete - Need additional Imaging Evaluation RECOMMENDATION: 1. Additional views of the right breast. 2. Targeted ultrasound if warranted after review of the additional views. 3. Radiology department staff will contact the patient for additional imaging. Additional Imaging required Electronically signed by: Korina Bejarano DO 04/18/2025 12:36 PM EDT
== END 2025-04-15 08:48 | disposition home or self-care (01) ==
LOC: HO.MAMMO 08:47
PROVIDERS: PCP Internal Medicine; Visit Provider Internal Medicine
DX: Z12.31 Encounter for screening mammogram for malignant neoplasm of breast (principal)
CPT/HCPCS: 77063; 77067

== ENCOUNTER 2025-06-12 13:28 | Outpatient (REF) | payer BC, MEDICAID, SELFPAY ==
--- NOTE | ~2025-06-12 | US_ITS ---
EXAMINATION(S): 1. MM DIAGNOSTIC DIGITAL BREAST TOMOSYNTHESIS, RIGHT 2. TARGETED ULTRASOUND OF THE RIGHT BREAST CLINICAL INFORMATION: Callback from screening for right breast asymmetry in the central breast posterior depth on the MLO view COMPARISON: Comparison made to multiple prior, most recent April 15, 2025, and most remote March 22, 2022. TECHNIQUE: Digital breast tomosynthesis is performed in full-field ML 90 degrees and MLO along with computer-aided detection (CAD). Synthesized 2D images are generated from the tomosynthesis. Spot compression tomosynthesis were obtained. FINDINGS: BREAST COMPOSITION: The breasts are heterogeneously dense, which may obscure small masses. RIGHT BREAST: Previously suggested asymmetry in the lower breast is pliable with spot compression. On today's images, the local parenchyma is similar to multiple prior studies as far back as at least 2021. Therefore, likely represented overlapping fibroglandular breast tissue. Targeted ultrasound of the right breast was performed at the location of the mammographic finding. The survey throughout the 5:00-7:00 axis did not reveal suspicious sonographic findings. US/US Breast RT Limited Mamm Only IMPRESSION: RIGHT BREAST: Negative, no evidence of malignancy. Normal interval follow-up is recommended in 12 months. ASSESSMENT: BI-RADS: Category 1: Negative RECOMMENDATION: 1 year F/U Results were provided to the patient at time of visit by the technologist. This patient's information was entered into a reminder system with a target due date for their next mammogram. Electronically signed by: Yinka Wong MD 06/12/2025 02:42 PM [facility]
--- OUTSIDE RECORDS SUMMARY | 2025-06-12 16:52 | XMS_ITS | Clinical Summary ---
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 Name Role Phone Unavailable Primary Care Provider Unavailabl e Social History Tobacco Use Types Packs/Day Years Used Date Smoking Tobacco: Never Assessed Comments Unknown Sex and Gender Information Value Date Recorded Sex Assigned at Female 04/21/2022 10:14 AM EDT Legal Sex Female 10:14 AM EDT Gender Identity Female 04/21/2022 10:14 AM EDT Sexual Orientation Straight 04/21/2022 10 :14 AM EDT Plan of Treatment Health Maintenance Due Date Last Done Comments CT Colonography 1977 Colonoscopy 1977 Colorectal Cancer Screening 1977 Depression Screening 1977 FIT DNA/Cologuard 1977 FIT 1977 FOBT 1977 HIV Screening 1977 SDOH Screening 1977 Sigmoidoscopy 1977 Disability Screening 1977 Alcohol/Substance Use Screening 1989 Tobacco Screening 1989 Family Planning (PISQ) 1992 Hepatitis C Screening 1995 Hepatitis B Vaccines (1 of 3 - 19+ 3-dose series) 1996 Pap Smear 1998 Cervical Cancer Screening 2007 HPV/Cotest 2007 Mammogram 2017 COVID-19 Vaccine (3 - 2024-2 6 season) 2025 04/19/2021, 03/29/2021 Influenza Vaccine (#1) 2025 04/30/2020 Zoster Vaccines (1 of 2) 2027 DTaP/Tdap/Td Vaccines (3 - T d or Tdap) 07/19/2029 07/19/2019, 09/14/2011 RSV Patients and Patients Aged 60 years or older (1 - 1-dose 75+ series) 2052 HIB Vaccines Aged Out No longer eligi ble based on patient's age to complete this topic HPV Vaccines Aged Out No longer eligi ble based on patient's age to complete this topic Hepatitis A Vaccines Aged Out No long er eligible based on patient's age to complete this topic IPV Vaccines Aged Out No longer eligi ble based on patient's age to complete this topic Meningococcal B Vaccine Aged Out No l onger eligible based on patient's age to complete this topic Meningococcal Vaccine Aged Out No jose david alexsandra eligible based on patient's age to complete this topic Pneumococcal Vaccine: Pediatrics (0 to 5 Years) and At-Risk Patients (6 to 49) Years Aged Out No longer eligible b ased on patient's age to complete this topic RSV under 20 months Aged Out No longe r eligible based on patient's age to complete this topic Rotavirus Vaccines Aged Out No longer eligible based on patient's age to complete this topic Insurance [facility] H[facility]
--- OUTSIDE RECORDS SUMMARY | 2025-06-12 16:52 | XMS_ITS | Clinical Summary ---
Author Organization [facility] Address [address] [facility] [address] [place] [phone] Phone Care Team Providers Care Pier Hand Name Role Phone Laurence Olmedo MD Primary Care Provider Allergies Active Allergy Reactions Criticality Noted Date Comments Other 07/12/2020 Most fruits and vegetables Can only eat peanuts and cashews for nuts Mostly allergic to raw fruits/vegetables Medications hydrOXYzine (ATARAX) 25 MG tablet Take 25 mg by mouth as needed. Active mv-mn/iron fum/FA/omega3,6, 9#3 (WOMEN'S MULTI ORAL) Take by mouth daily. Active ascorbic acid (VITAMIN C ORAL) Take 1,000 mcg by mouth daily. Active LORazepam (ATIVAN) 0.5 MG tablet Take 0.5 mg by mouth as needed for anxiety. Active Active Problems Problem Noted Date Diagnosed Date Lower abdominal pain 08/22/2020 Overview (08/22/2020): X 2 days in luteal phase Assessment & Plan (08/22/2020 2:46 PM EST): Suspect a CL cyst, though I am uncertain if there is truly a cyst on the bladder area or not, so U/s ordered with written note to check bladder as well Low grade squamous intraepit helial lesion on cytologic smear of cervix (LGSIL) 07/18/2020 Overview (07/18/2020): 2016 LSIL, +HPV 2017 NENO 2018 LSIL, +HPV - Neg colpo bx and neg ECC 06/2020 - NIL, +HPV (neg 16, 18, 45) Plan f/u co-testing 1 yr. 06/2021 Immunizations Immunization Administration Dates Next Due Influenza Quadrivalent MDCK Preservative Free IM 04/30/2020 Tdap 07/19/2019 Family History Medical History Relation Comments No Known Problems Brother Diabetes type II Father Glaucoma Father Heart disease Father Hypertension Father Diabetes Maternal Grandmother Glaucoma Maternal Uncle Anxiety disorder Mother Prostate cancer Paternal Grandfather ?colon ca No Known Problems Sister 1 No Known Problems Sister 2 Relation Status Comments Brother Alive Father Alive Maternal Grandmother Maternal Uncle Mother Alive Paternal Grandfather Sister 1 Alive Sister 2 Alive Social History Tobacco Use Types Packs/Day Years Used Date Smoking Tobacco: Never Smokeless Tobacco: Never Alcohol Use Standard Drinks/Week Comments Never 0 (1 standard drink = 0.6 oz pur e alcohol) Education Answer Date Recorded Are you interested in more education? Not on eladia e 10/17/2022 Are you concerned about learning? Not on file 10/17/2022 No 10/17/2022 No 10/17/2022 Digital Access Answer Date Recorded No 11/15/2022 No 11/15/2022 No 11/15/2022 Reliable internet access at home? Not on file 11/15/2022 Device with a working camera? 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 [employer] Not on file Not on file Not on file [employer] Not on file Not on file Not on file Last Filed Vital Signs Vital Sign Reading Time Taken Comments Blood Pressure 108/66 08/22/2020 1:37 PM EST Pulse - - Temperature - - Respiratory Rate - - Oxygen Saturation - - Inhaled Oxygen Concentration - - Weight 42.6 kg (94 lb) 08/22/2020 1:37 PM EST Height 160 cm (5' 3 ) 08/22/2020 1:37 PM EST Body Mass Index 16.65 08/22/2020 1:37 PM EST Plan of Treatment Health Maintenance Due Date Last Done Comments LIPID PANEL 1977 DEPRESSION SCREENING 1989 HEPATITIS C SCREENING 1995 HIV ONE-TIME SCREENING (18-6 5 YEARS) 1995 MAMMOGRAM 2017 PAP SMEAR 07/12/2021 07/12/2020, 07/12/2020 COLOGUARD 2022 COLONOSCOPY 2022 COLORECTAL CANCER SCREENING 2022 FIT TEST 2022 FOBT 2022 SIGMOIDOSCOPY 2022 VIRTUAL COLONOSCOPY 2022 INFLUENZA VACCINE (#1) 2025 04/30/2020 COVID-19 VACCINE (2024-2 6 season) 2025 04/19/2021, 03/29/2021 Adult Td,Tdap Booster 07/19/2029 07/19/2019 SMOKING STATUS SCREENING (On ce After 26 Yrs) Completed 08/22/2020 HEPATITIS A VACCINES Aged Out No long er eligible based on patient's age to complete this topic HIB VACCINES Aged Out No longer eligi ble based on patient's age to complete this topic MENINGOCOCCAL VACCINES (ACWY) Aged Out No longer eligible based on patient's age to complete this topic MENINGOCOCCAL VACCINES (B) Aged Out N o longer eligible based on patient's age to complete this topic PNEUMOCOCCAL VACCINES (0-49 years) Aged Out No longer eligible b ased on patient's age to complete this topic Medical Devices Not on file Procedures Procedure Name Priority Date/Time Associated Diagnosis Comments PAP SMEAR FOR RESULT ENTRY ONLY Routine 07/12/2020 from Last 3 Months or Most Recently Relevant to Health Maintenance Results * PAP SMEAR FOR RESULT ENTRY ONLY (07/12/2020) Historical Provider HEALTH MAINTENANCE Final Result from Last 3 Months or Most Recently Relevant to Health Maintenance Insurance [facility] HMO [facility] Address: [address] [address] [facility] [place] [address] [facility] Address: [address] [address] [facility] Address[facility] [address] [address] [facility] [place] [address] [facility] Address[facility] [address] [address] [facility] Address[facility] [address] [address] [facility] [address] [place], [place] [address] [facility] Address[facility] [address] [address] [facility] Address[facility] [address] [address] [facility] Address[facility] [address] [address] [facility] HMO [facility] Care Teams Pier Hand Relationship Specialty Start Date End Date Laurence Olmedo MD [address] [place] [address] [place] [phone] PCP - General Internal Medicine 05/02/20 Additional Source Comments The information contained in this document represents components of the legal health record. It is not the complete legal health record.[facility]
== END 2025-06-12 13:29 | disposition home or self-care (01) ==
LOC: HO.MAMMO 13:28
PROVIDERS: PCP Internal Medicine; Visit Provider Internal Medicine
DX: N64.89 Other specified disorders of breast (principal)
CPT/HCPCS: 76642; 77061; 77065

== ENCOUNTER → 2025-06-12 13:45 | Outpatient (BNV) | payer BC, MEDICAID, SELFPAY | PROVIDERS: PCP Internal Medicine; Visit Provider Radiology Body Imaging | DX: R92.8 Other abnormal and inconclusive findings on diagnostic imaging of breast (principal) | CPT/HCPCS: 76642; 77061; 77065 ==